=== PATIENT | female | born 1990 | race Caucasian/White ===

== ENCOUNTER 2020-02-07 10:31 | Emergency (ER) | payer OTHER ==
[2020-02-07 11:20] LABS: #Eosinphils 0.1 thou/uL (0.0-0.7); #Lymphocytes 1.4 thou/uL (1.20-3.40); #Monocytes 0.5 thou/uL (0.11-0.59); #Neutrophils 6.3 thou/uL (1.40-6.50); %Basophils 0.6 % (0.0-1.0); %Eosinophils 1.4 % (0.0-10.0); %Lymphocytes 17.1 % (21.0-51.0); %Monocytes 5.4 % (0.0-10.0); %Neutrophils 75.5 % (42.0-75.0); Hemoglobin 11.9 g/dL (12.0-16.0); Mean Corpuscular HGB CONC 35.2 g/dL (32.0-36.0); Mean Corpuscular Hemoglobin 30.8 pg (27.0-31.0); Mean Corpuscular Volume 87.7 fL (78.0-98.0); Mean Platelet Volume 7.3 fL (7.4-10.4); Platelet Count 170 thou/uL (130-400); RBC Distribution Width 11.3 % (11.5-14.5); Red Blood Cell (RBC) Count 3.88 mill/uL (4.20-5.40); White Blood Cell (WBC) Count 8.4 thou/uL (4.8-10.8)
[2020-02-07 11:57] LABS: ALT (SGPT) 17 U/L (8-55); AST (SGOT) 15 U/L (5-34); Albumin 3.6 g/dL (3.5-5.0); Alkaline Phosphatase 47 U/L (40-110); Anion Gap 12 mmol/L (10-20); BUN (Urea Nitrogen) 8 mg/dL (7.0-18.7); Bilirubin, Total 0.3 mg/dL (0.2-1.2); Calc. Creatinine Clearance 0 mL/min (70-130); Calcium 8.7 mg/dL (7.8-10.44); Carbon Dioxide 22 mmol/L (22-29); Chloride 106 mmol/L (98-107); Estimated GFR-MDRD Greater than 90; Globulin 2.6 g/dL (2.4-3.5); Glucose 92 mg/dL (70-105); Lipase 21 U/L (8-78); Protein, Total 6.2 g/dL (6.0-8.3); Sodium 136 mmol/L (136-145)
[2020-02-07 13:56] LABS: Bilirubin Negative (Negative); Blood, Urine Negative (Negative); Clarity Clear (Clear); Glucose, Urine (Dipstick) Normal (Negative); Leukocyte Negative Leu/uL (Negative); Nitrite Negative (Negative); Protein, Urine (Dipstick) Negative (Neg-Trace); Urobilinogen Normal mg/dL (Less than 2)
--- NOTE | 2020-02-07 14:43 | ULT ---
LIMITED OB ULTRASOUND: Date: 02-07-2020 Comparison: None History: female with cramping. Technique: Multiplanar grayscale sonographic imaging of the gravid uterus is obtained. FINDINGS: Cervical length is approximately 3.2 cm. Single intrauterine gestation demonstrates a vertex presenta tion. The placenta is located anteriorly with no evidence for a placental previa or abruption. heart rate is 157 beats/minute. anatomy is not assessed on this exam. Amniotic fluid volume appears qualitatively normal. biometry: BPD 3.8 cm 17 weeks 4 days HC 13.0 cm 16 weeks 5 days AC 10.9 cm 16 weeks 5 days FL 2.1 cm 16 weeks 2 days Average age based on ultrasound is 16 weeks 4 days, with estimated date of delivery on 07-20-2020. Estimated weight is 162 grams (+/- 24 grams). IMPRESSION: Single intrauterine gestation as detailed above. POS: ELPIDIO
== END 2020-02-07 13:58 | disposition home or self-care (01) ==
LOC: ERS 10:31
DX: O99.89 Other specified diseases and conditions complicating pregnancy, childbirth and the puerperium (principal); R06.02 Shortness of breath; R07.9 Chest pain, unspecified; Z3A.16 16 weeks gestation of pregnancy
CPT/HCPCS: 36415; 76815; 80053; 81003; 83690; 84702; 85025

== ENCOUNTER 2020-03-25 04:25 | Observation (INO) | payer OTHER ==
[2020-03-25 05:09] VITALS: BMI 31.5
[2020-03-25] MEDS ORDERED: hydrALAZINE 20 MG/ML VIAL SLOW IVP PRN (05:31)
--- NOTE | 2020-03-25 05:40 | PDOC.FPROB ---
FMR OB H&P: HPI - History of Present Illness Chief Complaint: Epigastric pain Indentification: 30yo at 23.2wks History of Present Illness: 30yo at 23.2wks presents for epigastric pain that started suddenly at 0330 and woke her from sleep. She has had this pain 3 times prior but this the longest it has lasted. She presented to the ED last time she had the pain but it had resolved prior to getting to ED. She ate around 1200 which she usually does not do. She at a chicken gurinder and mashed potatoes. The last 3 times she has eaten [place] food right before. She was concerned it may be heartburn so she took Mylanta prior to coming in and had no relief. She has vomited each time this has happened. Usually gives her some relief but this time it did not. Endorses FM. Denies vaginal bleeding/discharge, LOF, contractions. Primary Care Physician: CJ Amin FMR OB H&P: Current - Care : 2 Para: 0 Gestational age: 23.2 Course/Complications: gHTN vs cHTN? FMR OB H&P: History - Past Medical History PMH: Denies - Surgical History Sx History: Denies - Social History Social History: Denies alcohol, drug, tobacco use - Family History Family History: Noncontributory FMR OB H&P: Medications - Current Home Medications: Medication Instructions Recorded Confirmed Type Vitamin 1 tablet PO DAILY 03/25/20 03/25/20 History Sertraline HCl 50 mg PO DAILY 03/25/20 03/25/20 History Allergies/Adverse Reactions: Allergies Allergy/AdvReac Type Severity Reaction Status Date / Time blackberry Allergy Verified 03/25/20 05:04 FMR OB H&P: ROS - Review of Systems General: denies: fever/chills, weight/appetite/sleep changes Eyes: denies: vision changes ENT: denies: nasal congestion, rhinorrhea Cardiovascular: denies: chest pain, edema Respiratory: denies: cough, congestion, shortness of breath Gastrointestinal: reports: abdominal pain, vomiting. denies: nausea Genitourinary (Female): denies: dysuria, vaginal discharge, vaginal bleeding, contractions Musculoskeletal: denies: pain, swelling Neurologic: denies: numbness, weakness Integumentary: denies: itching, rash, lesions FMR OB H&P: Vital Signs - Maternal Vital signs: 147/87 - Heart Tones Baseline: 110 FMR OB H&P: Physical Exam - Physical Exam General: awake, alert and oriented, other (In distress) HEENT: normocephalic and atraumatic, MMM, conjunctiva clear, no scleral icterus , grossly normal hearing Neck: supple, trachea midline Heart: RRR, no murmurs/rubs/gallops, no edema General: CTAB, no respiratory distress Abdomen: soft, gravid, bowel sound present, other (epigastric and RUQ tenderness. No rebound or rigidity) Musculoskeletal: normal gait and station, FROM in all four extremities, no misalignment/asymmetry, no atrophy Neurological: no focal deficit Skin: no rash Lymphatic: no unusual bruising or bleeding Psychiatric: intact recent and remote memory, good judgement and insight, normal mood and affect FMR OB H&P: A/P Disposition: 30yo at 23.2wks Epigastric pain - Appendicitis very unlikely based on exam. No contractions on toco. Suspect cholelithiasis vs GERD - Ordered CBC, CMP, RUQ US. Will give GI cocktail. - FHTs reviewed Discussion: Date/Time: 03/25/20 0531 This H&P was discussed with Dr. Guerrero who agrees with the above documentation and plan. Addendum - Attending - Attending Attestation Date/Time: 03/25/20 1046 I personally evaluated the patient and discussed the management with Dr. Amos I agree with the History, Examination, Assessment and Plan documented above with any addition or exceptions noted below - 30 yo @23.2 weeks presented c/o b/l upper abdominal pain under her ribs; mostly midline. Pain began few hours after eating. Has had 3 other episodes of similar pain usually few hours eating but none that has persisted or been as severe. Did have one episode of N/V. Denies any fever or chills. (+) FM. GI cocktail given with minimal relief. Afebrile VSS. Exam repeated by me. Abd- mild epigastric tenderness, no rebound or guarding. Labs: WBC=9.4, H/H=11.9/34.1, Ahv=495, Na= 137, K=3.8, Qw=001, CO2=25, BUN/Cr=6/0.61, Anja=427, AST/ALT=95/61 A/P: 1) Upper abdominal pain- suspect gallbladder colic; will get RUQ USG for further evaluation.
[2020-03-25] MEDS ORDERED: Lidocaine 2% Viscous Solution 10 ML, Aluminum & Magnesium Hydroxide 30 ML SSW SCH (06:30)
[2020-03-25 06:58] LABS: #Monocytes 0.5 thou/uL (0.11-0.59); #Neutrophils 7.8 thou/uL (1.40-6.50); %Basophils 0.1 % (0.0-1.0); %Eosinophils 0.4 % (0.0-10.0); %Lymphocytes 10.9 % (21.0-51.0); %Monocytes 5.8 % (0.0-10.0); %Neutrophils 82.8 % (42.0-75.0); Hemoglobin 11.9 g/dL (12.0-16.0); Mean Corpuscular HGB CONC 34.8 g/dL (32.0-36.0); Mean Corpuscular Hemoglobin 30.7 pg (27.0-31.0); Mean Corpuscular Volume 88.1 fL (78.0-98.0); Mean Platelet Volume 7.4 fL (7.4-10.4); Platelet Count 190 thou/uL (130-400); RBC Distribution Width 12.3 % (11.5-14.5); Red Blood Cell (RBC) Count 3.87 mill/uL (4.20-5.40); White Blood Cell (WBC) Count 9.4 thou/uL (4.8-10.8)
[2020-03-25 07:23] LABS: ALT (SGPT) 61 U/L (8-55); AST (SGOT) 95 U/L (5-34); Albumin 3.8 g/dL (3.5-5.0); Alkaline Phosphatase 71 U/L (40-110); Anion Gap 11 mmol/L (10-20); BUN (Urea Nitrogen) 6 mg/dL (7.0-18.7); Bilirubin, Total 0.6 mg/dL (0.2-1.2); Calc. Creatinine Clearance 169 mL/min (70-130); Carbon Dioxide 25 mmol/L (22-29); Chloride 105 mmol/L (98-107); Estimated GFR-MDRD Greater than 90; Globulin 2.8 g/dL (2.4-3.5); Glucose 101 mg/dL (70-105); Potassium 3.8 mmol/L (3.5-5.1); Protein, Total 6.6 g/dL (6.0-8.3); Sodium 137 mmol/L (136-145)
[2020-03-25] MEDS ORDERED: Acetaminophen 500 MG TAB PO SCH (09:30)
--- NOTE | 2020-03-25 09:44 | ULT ---
GALLBLADDER ULTRASOUND: HISTORY: Right upper quadrant pain. FINDINGS: Real-time imaging of the right upper quadrant shows some echogenic material within the gallbladder wi th some faint shadowing associated with this. This probably represents sludge with small stones. Th e common duct is 7 mm. Visualized liver parenchyma shows no focal findings. Pancreas is fairly well imaged and unremarkable. Right kidney is normal in size and not obstructed. IMPRESSION: Echogenic material within the gallbladder lumen which does appear to show some faint shadowing sugges ting some small stones with sludge. The common duct is slightly dilated. It measures in the 7 mm ra nge. POS: OFF
[2020-03-25] MEDS ORDERED: Butorphanol Tartrate 1 MG/ML VIAL SLOW IVP PRN (10:25)
[2020-03-25] MEDS ORDERED: Ondansetron ODT 4 MG TAB PO PRN (10:25)
[2020-03-25] MEDS ORDERED: Ondansetron PF 4 MG/2 ML Vial IVP PRN (10:25)
[2020-03-25] MEDS ORDERED: Acetaminophen 325 MG TAB PO PRN (10:25)
--- NOTE | 2020-03-25 10:48 | PDOC.BPN ---
- Brief Progress Note RUQ ultrasounds revealed shadowing indicating stones and 7mm dilated common duct. Dr. Poole for surgery was consulted and will see her later today. Patient continues to have severe epigastric pain and was given PO tylenol. Patient has been admitted to surgical floor and is receiving zofran for nausea and stadol for pain.
[2020-03-25] MEDS: Lactated Ringer's 1,000 ML IV SCH ×2 (13:46→21:19)
[2020-03-25 14:47] LABS: INR-International Normal Ratio 0.9; Prothrombin Time 12.2 sec (12.0-14.7)
--- NOTE | 2020-03-25 19:28 | PDOC.CONS ---
- Consultation CHIEF COMPLAINT: Abdominal pain HISTORY OF PRESENT ILLNESS: 30-year-old gravid female (23 weeks) with 1 day history of abdominal pain. The pain is characterized as "sharp and stabbing" it is located in the epigastrium. She reports that it radiates along the bilateral subcostal margins into the back. It is associated with nausea and vomiting. She reports 3 previous episodes of similar pain (all associated with fatty meals); however, these have resolved spontaneously within a short period of time. The duration of this pain was worrisome, and she presented for further evaluation. REVIEW OF SYSTEMS: General: Denies recent weight changes, fever, or chills. Eyes: Denies visual changes, pain, or irritation ENT: Denies changes in hearing, nasal discharge, or sore throat Cardiovascular: Denies chest pain, palpitations, shortness of breath, or edema. Respiratory: Denies cough, shortness of breath, or wheezing Gastrointestinal: Positive per HPI Genitourinary: Denies frequent urination or dysuria Musculoskeletal: Denies pain or restricted motion Integumentary: Denies abnormal rashes, sores, or skin lesions Neurological: Denies numbness, tingling, or weakness. Psychiatric: Denies new onset anxiety or depression Endocrine: Denies temperature intolerances, polyuria, or excessive thirst Hematologic: Denies abnormal bruising or bleeding PAST MEDICAL HISTORY: Denies PAST SURGICAL HISTORY: Denies FAMILY HISTORY: Noncontributory SOCIAL HISTORY None smoker, denies illicit drug use, endorses occasional alcohol consumption. PHYSICAL EXAM: Vital Signs: wnl General: Alert and oriented, no acute distress ENT: Sclera anicteric, pupils equal and reactive, mucous membranes moist Neck: No jugular venous distention, trachea midline Cardiovascular: Regular rate and rhythm Pulmonary: Clear to auscultation Abdominal: Soft, nondistended, mildly tender to palpation. Gravid Genitourinary: Normal anatomy Rectal: Deferred Integument: No abnormal rashes or lesions Musculoskeletal: No gross deformities or edema, normal range of motion LABORATORY: Laboratory analysis reviewed and demonstrates a normal white blood cell count. Mildly elevated transaminases at 95 and 61. IMAGING: The ultrasound of the abdomen was reviewed as well as radiology interpretation. Demonstrates sludge and small stones with a mildly but dilated common bile duct of 7 mm. ASSESSMENT: 30-year-old female with biliary colic versus early acute cholecystitis; possibly due to the passage of a small stone. The natural history of biliary colic and acute cholecystitis was discussed in detail with the patient to include her management options relative to her . PLAN: We will monitor overnight. If the patient continues to improve, her and her feel that they are likely to pursue nonsurgical therapy and focus on diet modifications. If she fails to to continue her improvement, we will plan for laparoscopic cholecystectomy with intraoperative cholangiogram tomorrow morning. The relative risks and benefits of this procedure were discussed in detail with the patient, specifically addressing the risk of bleeding, infection , damage to adjacent structures, bile leak, and damage to the common bile duct. Informed consent was obtained.
[2020-03-25] MEDS ORDERED: Prenatal Vitamin 1 TAB PO SCH (21:00)
[2020-03-26] MEDS: Lactated Ringer's 1,000 ML IV SCH (05:45)
[2020-03-26 07:29] LABS: #Eosinphils 0.1 thou/uL (0.0-0.7); #Lymphocytes 1.7 thou/uL (1.20-3.40); #Monocytes 0.5 thou/uL (0.11-0.59); #Neutrophils 4.8 thou/uL (1.40-6.50); %Basophils 0.1 % (0.0-1.0); %Eosinophils 1.3 % (0.0-10.0); %Lymphocytes 23.9 % (21.0-51.0); %Monocytes 6.5 % (0.0-10.0); %Neutrophils 68.2 % (42.0-75.0); Hemoglobin 11.8 g/dL (12.0-16.0); Mean Corpuscular HGB CONC 34.3 g/dL (32.0-36.0); Mean Corpuscular Hemoglobin 30.9 pg (27.0-31.0); Mean Corpuscular Volume 90.1 fL (78.0-98.0); Mean Platelet Volume 7.5 fL (7.4-10.4); Platelet Count 182 thou/uL (130-400); RBC Distribution Width 12.4 % (11.5-14.5); Red Blood Cell (RBC) Count 3.82 mill/uL (4.20-5.40); White Blood Cell (WBC) Count 7.1 thou/uL (4.8-10.8)
--- NOTE | 2020-03-26 07:43 | PDOC.FM ---
- Subjective Subjective: No acute overnight events. No new complaints. States her pain has been resolved since she received stadol around 1000 yesterday morning. Has been able to tolerate PO intake since then without any n/v or epigastric/RUQ pain. Would like to defer surgical intervention. Has many questions about appropriate diet. - Objective Vital Signs & Weight: Vital Signs (12 hours) Temp Pulse Resp BP Pulse Ox 03/26/20 04:42 98.3 F 99 16 115/59 L 100 03/25/20 23:27 98.1 F 100 16 138/70 100 Weight Weight 80.739 kg I&O: 03/25/20 03/26/20 03/27/20 06:59 06:59 06:59 Intake Total 2448 Balance 2448 Result Diagrams: 03/26/20 07:22 03/26/20 07:22 Phys Exam - Physical Examination Constitutional: NAD HEENT: moist MMs, sclera anicteric Neck: supple, full ROM Respiratory: no wheezing, no rales, no rhonchi, clear to auscultation bilateral Cardiovascular: RRR, no significant murmur Gastrointestinal: soft, non-tender, positive bowel sounds gravid Musculoskeletal: no edema, pulses present Neurological: non-focal, moves all 4 limbs Psychiatric: normal affect, A&O x 3 Skin: no rash Dx/Plan - Plan Plan: Biliary colic vs acute cholecystitis RUQ US revealed shadowing in GB indicative of stones, and 7mm dilated CBD on . -Surgery consulted, appreciate recs -Symptomatically improved -Discussed low-fat diet for cholecystitis at length -Likely discharge home today pending approval from surgery sIUP: - @ 23.2 wks -Confirm FHT qShift -Tylenol, Stadol only for pain control Addendum - Attending - Attending Attestation Date/Time: 03/26/20 0906 I personally evaluated the patient and discussed the management with Dr. Pineda I agree with the History, Examination, Assessment and Plan documented above with any addition or exceptions noted below - Patient denies any complaints. No further abdominal pain since yesterday. Tolerated diet last night. Afebrile VSS. A/P: 10 IUP@ 23.3 weeks with biliary colic- no further pain. Appreciate surgery recommendations. Will plan to d/c home today.
[2020-03-26 07:50] LABS: ALT (SGPT) 104 U/L (8-55); AST (SGOT) 56 U/L (5-34); Albumin 3.6 g/dL (3.5-5.0); Alkaline Phosphatase 76 U/L (40-110); Anion Gap 10 mmol/L (10-20); BUN (Urea Nitrogen) 7 mg/dL (7.0-18.7); Bilirubin, Total 0.4 mg/dL (0.2-1.2); Calc. Creatinine Clearance 174 mL/min (70-130); Calcium 8.8 mg/dL (7.8-10.44); Carbon Dioxide 24 mmol/L (22-29); Chloride 107 mmol/L (98-107); Estimated GFR-MDRD Greater than 90; Globulin 2.5 g/dL (2.4-3.5); Glucose 84 mg/dL (70-105); Potassium 3.8 mmol/L (3.5-5.1); Protein, Total 6.1 g/dL (6.0-8.3); Sodium 137 mmol/L (136-145)
[2020-03-26 09:38] VITALS: BP 113/55; TEMP 98.5
[2020-03-26 12:19] LABS: SARS-CoV-2 MS2 Positive; SARS-CoV-2 N Gene Negative; SARS-CoV-2 S Gene Negative; SARS-CoV-2 by NAA Not Detected (NotDetected); SARS-CoV-2 orf1ab Negative
--- NOTE | 2020-03-26 18:15 | DIS ---
DATE OF ADMISSION: 03/25/2020 DATE OF DISCHARGE: 03/26/2020 RESIDENT: Siobhan Pineda DO ADMITTING ATTENDING: Melinda Guerrero MD DISCHARGE ATTENDING: Melinda Guerrero MD CONSULTS: General Surgery, Dr. Poole. PROCEDURES: Right upper quadrant ultrasound. Echogenic material within the gallbladder lumen which does appear to show some faint shadowing suggesting some small stones with sludge. The common duct is slightly dilated measuring 7 mm. PRIMARY DIAGNOSIS: Biliary colic with cholelithiasis. SECONDARY DIAGNOSIS: Single intrauterine . DISCHARGE MEDICATIONS: 1. Sertraline 50 mg daily. 2. vitamin one tablet daily. 3. Tylenol 650 mg q.4 hours p.r.n. DISCONTINUED MEDICATIONS: None. HOSPITAL COURSE: This 30-year-old female, who is a G2, P0 at 23 and 2 weeks gestation, was admitted for a complaint of epigastric pain with associated vomiting. She has had similar pain in the past associated with eating [place] food. Upon lab evaluation, her AST and ALT were both mildly elevated. heart tones were detected with a baseline heart rate of approximately 110. A right upper quadrant ultrasound was performed, revealing stones and sludge in the gallbladder, along with dilation of the common bile duct to 7 mm. General Surgery was consulted, Dr. Poole. Surgery recommended watching overnight and overnight her pain resolved. She opted not to pursue surgical management of her biliary colic at this time and will try low-fat diet instead. DISPOSITION: Stable. DISCHARGE INSTRUCTIONS: Location: Home. Diet: Low fat. Activity: As tolerated. Followup: Follow up with her PCP at [facility] as previously scheduled within one week. Job ID: [id number] [facility]
--- NOTE | 2020-03-26 21:14 | PDOC.BPN ---
- Brief Progress Note Doing much better. Denies abdominal pain. Tolerating regular diet, without nausea or vomiting. EXAM: VS: T 98.3 HR 99 BP 115/59 RR 16 SpO2 [ ] General: Alert and oriented, no acute distress, resting comfortably Pulmonary: No dyspnea or difficulty breathing Abdomen: Soft, non-distended, nontender CV: Regular rate and rhythm, palpable distal pulses Extremities: No edema I/O: NR oral intake NR UOP LABORATORY / IMAGING: Laboratory analysis reviewed and demonstrates a normal white blood cell count of 7.1. Basic metabolic panel within normal limits PLAN: 30-year-old gravid female with biliary colic. After lengthy discussion with the patient over the last 48 hours, they have elected to proceed with nonoperative management and dietary changes. Contact information provided for clinic for outpatient management of biliary colic continues. Okay to discharge home
== END 2020-03-26 11:25 | disposition home health service (06) ==
LOC: ER/OP 04:25 → L&D/OP 04:25 → 3SW 12:54
PROVIDERS: ADMIT Family Medicine; ATTEND Family Medicine
DX: O99.613 Diseases of the digestive system complicating pregnancy, third trimester (principal); K80.70 Calculus of gallbladder and bile duct without cholecystitis without obstruction; Z3A.23 23 weeks gestation of pregnancy; Z79.899 Other long term (current) drug therapy; Z91.018 Allergy to other foods
CPT/HCPCS: 36415; 76705; 80053; 85025; 85610; 87635; 96361; 96374; 96375; G0378; J0595; J2405; U0003

== ENCOUNTER 2020-05-15 13:08 | Outpatient (CLI) | payer OTHER | END 2020-05-15 13:09 | disposition home or self-care (01) | LOC: DTY/OP 13:08 | PROVIDERS: ATTEND Family Medicine | DX: K80.50 Calculus of bile duct without cholangitis or cholecystitis without obstruction (principal) | CPT/HCPCS: 97802 ==

== ENCOUNTER 2020-05-16 18:43 | Day surgery (SDC) | payer OTHER ==
[2020-05-16 19:26] VITALS: BP 132/80; TEMP 98.3; BMI 31.6
[2020-05-16] MEDS ORDERED: hydrALAZINE 20 MG/ML VIAL SLOW IVP PRN (20:14)
[2020-05-16 20:35] LABS: Bacteria/HPF None Seen HPF (None Seen); Bilirubin Negative (Negative); Blood, Urine Negative (Negative); Clarity Clear (Clear); Glucose, Urine (Dipstick) Normal (Negative); Ketone, Urine Negative (Negative); Leukocyte Negative Leu/uL (Negative); Nitrite Negative (Negative); Protein, Urine (Dipstick) Negative (Neg-Trace); RBC/HPF 0-3 HPF (0-3); Specific Gravity, Urine 1.004 (1.002-1.036); Squamous Epithelial 0-3 HPF (0-3); Urobilinogen Normal mg/dL (Less than 2); WBC/HPF 0-3 HPF (0-3); pH, Urine 6.5 (5.0-9.0)
--- NOTE | 2020-05-16 21:24 | PDOC.FPROB ---
FMR OB H&P: HPI - History of Present Illness Chief Complaint: lost mucus plug History of Present Illness: 30 y/o at 30.6 wks presents with concern she lost her mucus plug earlier today. States she noticed some pink-tinged mucus on the toilet tissue when she wiped after urination. She called a nurse through her insurance who advised her to come to triage for concern she may have lost her mucous plug. Endorses good movement, denies any LOF, vaginal bleeding, vaginal discharge other than that described. Describes some lower abdominal cramping, no true contractions. Denies any dysuria, hematuria. Last sexual activity 3 days ago. 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, tachycardia s/p cardiac workup age 16 - OB History OB History: hx SAB - Surgical History Sx History: cholecystectomy - Social History Social History: denies tobacco, etoh, drug use - Family History Family History: Cancer, Drug use, Heart dz, ESRD, HTN, Alzhimers FMR OB H&P: Medications - Current Home Medications: Medication Instructions Recorded Confirmed Type Vitamin 1 tablet PO DAILY 03/25/20 05/16/20 History Sertraline HCl 50 mg PO DAILY 03/25/20 05/16/20 History Sennosides [Senna] 3 tab PO DAILY 04/19/20 05/16/20 History Allergies/Adverse Reactions: Allergies Allergy/AdvReac Type Severity Reaction Status Date / Time blackberry Allergy Intermediate Verified 05/16/20 19:15 FMR OB H&P: ROS - Review of Systems General: denies: fever/chills Eyes: denies: vision changes, floaters ENT: denies: nasal congestion, rhinorrhea Cardiovascular: denies: chest pain, palpitation, edema Respiratory: denies: cough, congestion, shortness of breath Gastrointestinal: reports: cramping. denies: abdominal pain, nausea, vomiting, diarrhea, constipation Genitourinary (Female): reports: vaginal discharge, vaginal pain. denies: dysuria, hematuria, polyuria, vaginal bleeding, vaginal pressure Musculoskeletal: denies: pain Neurologic: denies: weakness Integumentary: denies: rash Endocrine: denies: polyuria FMR OB H&P: Vital Signs - Maternal Vital signs: Vital Signs - First Documented Temp Pulse Resp BP Pulse Ox 98.3 F 106 H 18 132/80 99 05/16/20 19:13 05/16/20 19:13 05/16/20 19:13 05/16/20 19:13 05/16/20 19:13 - Heart Tones Baseline: 140 (reassuring) Variability: moderate Acceleration: present Deceleration: absent Goodwin contractions every: absent FMR OB H&P: Physical Exam - Physical Exam General: NAD, awake, alert and oriented HEENT: normocephalic and atraumatic, MMM, conjunctiva clear, grossly normal vision, grossly normal hearing Neck: no LAD Heart: RRR, no murmurs/rubs/gallops, pulses present, no edema General: CTAB, no respiratory distress Abdomen: soft, gravid, non-tender, bowel sound present Musculoskeletal: normal gait and station, pulses present Neurological: sensation to pain,touch and proprioception grossly normal, no foca l deficit Skin: no rash Lymphatic: no unusual bruising or bleeding Psychiatric: intact recent and remote memory - Pelvic Exam SVE: closed/thick/high FMR OB H&P: Results - Labs Lab results: Laboratory Results - last 24 hr 05/16/20 20:20 Urine Color Colorless Urine Clarity Clear Urine pH 6.5 Ur Specific [place] 1.004 Urine Protein Negative Urine Glucose (UA) Normal Urine Ketones Negative Urine Blood Negative Urine Nitrite Negative Urine Bilirubin Negative Urine Urobilinogen Normal Ur Leukocyte Esterase Negative Urine RBC 0-3 Urine WBC 0-3 Ur Squamous Epith Cells 0-3 Urine Bacteria None Seen FMR OB H&P: A/P Disposition: sIUP, uterine irritability at 30.6 wks with lower abd cramping, uterine irritability - UA negative for infection - speculum exam: physiologic discharge, no pooling of fluid, no expulsion of fluid from cervical os with valsalva, cervix visually appears closed - SVE: closed, thick, high - US with no evidence of placenta previa - very low suspicion for pre-term labor given cervical and speculum exam - discharge to home with return precautions - f/u in clinic at routinely scheduled Discussion: Date/Time: 05/16/202123 This H&P was discussed with Dr. Amaya and Dr. Camarena who agree with the above documentation and plan. Addendum - Attending - Attending Attestation Date/Time: 05/18/202045 I personally evaluated the patient and discussed the management with Dr. Pineda. I agree with the History, Examination, Assessment and Plan documented above with any addition or exceptions noted below. Reassuring status, minimal/no ctx, c/th/h. D/c with return precautions discussed.
--- NOTE | 2020-05-16 22:23 | ULT ---
Limited obstetrical ultrasound: 05/16/2020 COMPARISON: None HISTORY: Evaluate for placental previa TECHNIQUE: Multiplanar grayscale sonographic imaging of the gravid uterus obtained. FINDINGS: There is a single intrauterine gestation demonstrating a vertex presentation. The placenta is located anteriorly, demonstrating no evidence for previa or abruption. heart rate is 114 bpm. anatomy is not assessed on this exam. IMPRESSION: No evidence for placental previa.
== END 2020-05-16 21:50 | disposition home or self-care (01) ==
LOC: L&D/OP 18:43
PROVIDERS: ATTEND Emergency Medicine
DX: O99.89 Other specified diseases and conditions complicating pregnancy, childbirth and the puerperium (principal); N89.8 Other specified noninflammatory disorders of vagina; R10.9 Unspecified abdominal pain; Z79.899 Other long term (current) drug therapy; Z91.018 Allergy to other foods
CPT/HCPCS: 76815; 81003

== ENCOUNTER 2020-07-01 09:16 | Inpatient (IN) | payer OTHER ==
[2020-07-01 09:58] VITALS: BMI 34.9
[2020-07-01] MEDS ORDERED: hydrALAZINE 20 MG/ML VIAL SLOW IVP PRN (10:36)
--- NOTE | 2020-07-01 10:49 | PDOC.FPROB ---
FMR OB H&P: HPI - History of Present Illness Chief Complaint: elevated blood pressure History of Present Illness: 30 y/o at 37.3 weeks presents for evaluation after being found to have an elevated protein-creatinine ratio of 0.4 in the outpatient setting. She complains of swelling in her legs and hands. She reports symptoms of vision changes approximately 3 weeks ago described as flashing and floating, but has not had any flashes, floating, or changes to visual acuity since that time. She denies headache, SOB, chest pain, abdominal pain. She also denies any vaginal bleeding, LOF, vaginal discharge. She endorses good movement. Other complications in this include pre-HTN vs white coat HTN. She was evaluated by MFM during this regarding her blood pressure, which has been sporadically elevated. She has hx of HSV, compliant with valtrex, denies any active lesions or prodromal symptoms. She reports a bump on her L labia without prodromal sx that she does not think is an HSV outbreak. She was seen in office on 06/27 and GBS swab collected, results still pending. Primary Care Physician: CJ Benoit/Kiran FMR OB H&P: Current - Care : 2 Para: 0 Gestational age: 37.3 wks Due date: 07/19/20 Dating Criteria: 11.2 wk sono Course/Complications: mood disorder, biliary colic s/p cholecystectomy, pre-HTN vs white coat HTN seen by MFM - OB Labs Blood type: O RH: negative Antibody Screen: positive (Ab positive on admission s/p rhogam, was ab neg in 03/2020) HIV: negative RPR: negative HepBsAg: negative Rubella: immune Gonorrhea: negative Chlamydia: negative Pap Smear: ASCUS - colpo without bx, will need repeat w/ECC 6 wk pp 1 hour gtt: 2 hr 76/139/84 GBS: unknown (collected 06/27, results pending) FMR OB H&P: History - Past Medical History PMH: anxiety, depression, HSV w/o outbreak, tachycardia s/p cardiac workup age 16, pre-HTN vs white coat HTN - OB History OB History: hx SAB - INSURANCE CONSULTANT History INSURANCE CONSULTANT History: Pap ASCUS 12/2019, colpo w/o bx, needs f/u 6 wk pp - Surgical History Sx History: cholecystectomy - Social History Social History: denies tobacco, etoh, drug use - Family History Family History: Cancer, Drug use, Heart dz, ESRD, HTN, Alzhimers FMR OB H&P: Medications - Current Home Medications: Medication Instructions Recorded Confirmed Type Vitamin 1 tablet PO DAILY 03/25/20 07/01/20 History Sertraline HCl 50 mg PO DAILY 03/25/20 07/01/20 History Sennosides [Senna] 3 tab PO DAILY 04/19/20 07/01/20 History Allergies/Adverse Reactions: Allergies Allergy/AdvReac Type Severity Reaction Status Date / Time blackberry Allergy Intermediate Verified 07/01/20 09:58 FMR OB H&P: ROS - Review of Systems General: denies: fever/chills, fatigue Eyes: reports: floaters. denies: vision changes ENT: denies: nasal congestion, rhinorrhea Cardiovascular: reports: edema. denies: chest pain, palpitation Respiratory: denies: cough, congestion, shortness of breath Gastrointestinal: denies: abdominal pain, cramping, nausea, vomiting, diarrhea, constipation Genitourinary (Female): denies: dysuria, hematuria, polyuria, hesitancy, vaginal discharge, vaginal pain, vaginal bleeding, contractions, vaginal pressure Musculoskeletal: denies: pain Neurologic: reports: numbness. denies: weakness Integumentary: denies: rash Psychological: reports: anxiety FMR OB H&P: Vital Signs - Maternal Vital signs: BP: 141/80 HR: 100 - Heart Tones Baseline: 150 Variability: moderate Acceleration: present Deceleration: absent Category: category 1 [place] contractions every: > 10 min FMR OB H&P: Physical Exam - Physical Exam General: NAD, awake, alert and oriented HEENT: normocephalic and atraumatic, PERRLA, MMM, conjunctiva clear, no scleral icterus, grossly normal vision, grossly normal hearing, good dention Neck: supple, no LAD Chest: non-tender to palpation Heart: RRR, normal S1/S2, no murmurs/rubs/gallops Deviation from normal: 2-3 + pitting edema bilateral LE, edematous hands, facial swelling General: CTAB, no respiratory distress, good air movement Abdomen: soft, gravid, non-tender Musculoskeletal: normal gait and station, FROM in all four extremities Neurological: sensation to pain,touch and proprioception grossly normal, no clonus, no tremor, no focal deficit Skin: no rash Lymphatic: no unusual bruising or bleeding Psychiatric: intact recent and remote memory, good judgement and insight Deviation from normal: anxious mood - Pelvic Exam Vulva: normal hair distribution Deviation from normal: cystic lesion c/w ingrowing hair L labia majora, no herpetic lesions Cervix: no lesions SVE: FT/50/-2/soft/mid FMR OB H&P: A/P Disposition: Alicia, mIOL 37.3 weeks today, sIUP. Admit for mIOL for pre-eclampsia. Cephalic presentation, confirmed with bedside sono. - SVE FT/50/-2 soft, mid, intact @ 1200, 50 mcg PO cytotec @ 1215 - FHT 150s, Cat 1 strip - Repeat SVE unchanged at 1600, vaginal cytotec placed - Recheck SVE in 4 hours - continuous monitoring Pre-eclampsia Pr-Cr 0.4 in outpatient setting earlier this week. Blood pressure 140s/80s since arrival to L&D with one reported SBP 150s this AM. Symptoms include leg swelling, hand swelling, facial swelling. No severe features. - Pr/Cr ratio 0.5 on admission - Plt, LFTs wnl - continue to monitor BP closely, treat > 160/110 GBS unknown Collected in office on 06/27/20 - will try to contact [facility] for results - may need abx ppx if unable to obtain results Hx HSV Has never had outbreak. Compliant with valtrex ppx. - external and speculum exam performed without evidence of lesion Discussion: Date/Time: 07/01/20 1049 This H&P was discussed with Dr. Amos and Dr. Camarena who agree with the above documentation and plan. Addendum - Attending - Attending Attestation Date/Time: 07/02/20 0903 I personally evaluated the patient and discussed the management with the team. I agree with the History, Examination, Assessment and Plan documented above with any addition or exceptions noted below. Extensive discussion with the patient concerning her blood pressures. She is adamant she does not have chronic hypertension, that she checked her bp's at home and never had elevated ones until recently, when they started increasing to the 130's/80's and on morning of admission were >140/90. She has no severe symptoms. On exam she has no clonus but obvious facial and hand swelling. He labs are diagnostic of preeclampsia with her p/c > 0.3. Her platelet count, while not low, is <150k. Will plan for induction. On speculum exam no lesions c/w HSV. No prodromal symptoms as well. Plan for PO cytotec 2/ patient's aversion to SVE.
[2020-07-01] MEDS ORDERED: Ondansetron PF 4 MG/2 ML Vial IVP PRN (11:01)
[2020-07-01] MEDS ORDERED: Promethazine HCl 25 MG/ML VIAL IM PRN (11:01)
[2020-07-01] MEDS ORDERED: Bupivacaine/Epinephrine 0.25% 30 ML VIAL ONE (11:39)
[2020-07-01] MEDS ORDERED: Bupivacaine 0.25% HCL 30 ML VIAL ONE (11:39)
[2020-07-01] MEDS ORDERED: NS / Oxytocin 40 units/1000ml 1,000 ML IV PRN (11:44)
[2020-07-01] MEDS ORDERED: Lidocaine 1% (PF) 30 ML VIAL SC PRN (11:44)
[2020-07-01] MEDS ORDERED: Misoprostol 100 MCG TAB PO SCH (11:45)
[2020-07-01 11:55] LABS: #Eosinphils 0.1 thou/uL (0.0-0.7); #Monocytes 0.4 thou/uL (0.11-0.59); #Neutrophils 4.7 thou/uL (1.40-6.50); %Basophils 0.3 % (0.0-1.0); %Eosinophils 1.1 % (0.0-10.0); %Lymphocytes 15.3 % (21.0-51.0); %Monocytes 6.6 % (0.0-10.0); %Neutrophils 76.7 % (42.0-75.0); Hemoglobin 16.3 g/dL (12.0-16.0); Mean Corpuscular HGB CONC 35.4 g/dL (32.0-36.0); Mean Corpuscular Hemoglobin 31.3 pg (27.0-31.0); Mean Corpuscular Volume 88.4 fL (78.0-98.0); Mean Platelet Volume 7.7 fL (7.4-10.4); Platelet Count 135 thou/uL (130-400); Red Blood Cell (RBC) Count 5.21 mill/uL (4.20-5.40); White Blood Cell (WBC) Count 6.2 thou/uL (4.8-10.8)
[2020-07-01 12:14] LABS: ALT (SGPT) 14 U/L (8-55); AST (SGOT) 11 U/L (5-34); Albumin 3.5 g/dL (3.5-5.0); Alkaline Phosphatase 169 U/L (40-110); Anion Gap 14 mmol/L (10-20); BUN (Urea Nitrogen) 10 mg/dL (7.0-18.7); Bilirubin, Total 0.3 mg/dL (0.2-1.2); Calc. Creatinine Clearance 190 mL/min (70-130); Calcium 9.8 mg/dL (7.8-10.44); Carbon Dioxide 21 mmol/L (22-29); Chloride 106 mmol/L (98-107); Estimated GFR-MDRD Greater than 90; Globulin 3.2 g/dL (2.4-3.5); Glucose 101 mg/dL (70-105); Potassium 4.1 mmol/L (3.5-5.1); Protein, Total 6.7 g/dL (6.0-8.3); Sodium 137 mmol/L (136-145)
[2020-07-01 12:31] LABS: HBSAg Index 0.19 S/CO (0-0.99); Hep B Surf Ag Non-Reactive S/CO (NonReactive)
[2020-07-01 13:46] LABS: Syphilis Antibody Nonreactive (Nonreactive); Syphilis Antibody Index 0.03 S/CO (<1.00 Non-Reactive)
[2020-07-01 15:37] LABS: Creatinine, Urine 31.99 mg/dL (47-110)
[2020-07-01] MEDS ORDERED: Misoprostol 100 MCG TAB VAG SCH (16:30)
--- NOTE | 2020-07-01 21:08 | PDOC.LDPN ---
Labor & Delivery Progress Note - Subjective Subjective: painful contractions - Objective Vital signs reviewed and normal: yes General: NAD, breathing through contractions Uterine fundus: non tender Dilation: 1 Effacement: 75% Station: -2 FHT: category 1, variability present [place] contractions every: 2-3 min Plan: continue plan of care -: sIKARLOS, mIOL 37.3 weeks today, sIUP. Admit for mIOL for pre-eclampsia. Cephalic presentation, confirmed with bedside sono. @1200 FT/50/-2 soft, mid, intact, 50 mcg PO cytotec @ 1215 @1600 FT/50/-2, 25 cytotec PV @5 65/-2, baseline FHTs 120-130, salomon q2-3min, Cat I strip, blood pressures 130-140s systolic - recheck in 2 hours to determine if contractions have spaced, if yes, will give another cytotec - if contractions do not space out will check at 4 hours from last check - continuous monitoring - patient does not wish for anything for pain at this time Pre-eclampsia Pr-Cr 0.4 in outpatient setting earlier this week. Blood pressure 140s/80s since arrival to L&D with one reported SBP 150s this AM. Symptoms include leg swelling, hand swelling, facial swelling. No severe features. - Pr/Cr ratio 0.5 on admission - Plt, LFTs wnl - continue to monitor BP closely, treat > 160/110 GBS unknown Collected in office on 06/27/20 - called CPL and results still pending - will start ppx once patient is in active labor Hx HSV Has never had outbreak. Compliant with valtrex ppx. - external and speculum exam performed without evidence of lesion This case was discussed with Dr. Camarena. Addendum - Attending - Attending Attestation Date/Time: 07/02/20 0902 I personally evaluated and discussed the management with the team. I agree with the History, Examination, Assessment and Plan documented above with any addition or exceptions noted below.
[2020-07-01] MEDS ORDERED: Penicillin G Potassium 5 MILL.UNITS in Sodium Chloride 0.9% 100 ML IVPB SCH (22:15)
[2020-07-01] MEDS ORDERED: Butorphanol Tartrate 1 MG/ML VIAL SLOW IVP SCH (22:15)
[2020-07-02] MEDS ORDERED: Butorphanol Tartrate 1 MG/ML VIAL ONE (00:24)
--- NOTE | 2020-07-02 00:27 | PDOC.LDPN ---
Labor & Delivery Progress Note - Subjective Subjective: painful contractions - Objective Vital signs reviewed and normal: yes General: NAD, breathing through contractions Uterine fundus: non tender Dilation: 2 Effacement: 75% Station: -1 Plan: continue plan of care -: Bebe VargasOL 37.3 weeks today, sIUP. Admit for mIOL for pre-eclampsia. Cephalic presentation, confirmed with bedside sono. @1200 FT/50/-2 soft, mid, intact, 50 mcg PO cytotec @ 1215 @1600 FT/50/-2, 25 cytotec PV @5 165/-2, baseline FHTs 120-130, salomon q2-3min, Cat I strip, blood pressures 130-140s systolic @0030 , baseline FHTs 120bpm, salomon q1-2 min, Cat I strip, blood pressures 130s-140s systolic - given stadol x2 for pain, second dose given before 0030 check; patient would now like epidural - will recheck in 3-4 hours - continuous monitoring Pre-eclampsia Pr-Cr 0.4 in outpatient setting earlier this week. Blood pressure 140s/80s since arrival to L&D with one reported SBP 150s this AM. Symptoms include leg swelling, hand swelling, facial swelling. No severe features. - Pr/Cr ratio 0.5 on admission - Plt, LFTs wnl - continue to monitor BP closely, treat > 160/110 GBS unknown Collected in office on 06/27/20 - called CPL and results still pending - will start ppx once patient is in active labor Hx HSV Has never had outbreak. Compliant with valtrex ppx. - external and speculum exam performed without evidence of lesion This case was discussed with Dr. Camarena. Addendum - Attending - Attending Attestation Date/Time: 07/02/20 0906 I personally evaluated and discussed the management with the team. I agree with the History, Examination, Assessment and Plan documented above with any addition or exceptions noted below.
[2020-07-02] MEDS ORDERED: Butorphanol Tartrate 1 MG/ML VIAL SLOW IVP SCH (00:30)
[2020-07-02] MEDS ORDERED: Fentanyl 4 mcg/Bup 0.1% Cadd 100 ML ONE ×3 (01:02→20:56)
[2020-07-02] MEDS ORDERED: Acetaminophen 325 MG TAB PO PRN (01:06)
[2020-07-02] MEDS ORDERED: Ondansetron PF 4 MG/2 ML Vial IVP PRN (01:06)
[2020-07-02] MEDS ORDERED: Promethazine HCl 25 MG/ML VIAL IM PRN (01:06)
[2020-07-02] MEDS ORDERED: Naloxone HCl 0.4 mg/ml Vial IVP PRN ×2 (01:06)
[2020-07-02] MEDS ORDERED: diphenhydrAMINE 50 MG/ML VIAL IVP PRN (01:06)
[2020-07-02] MEDS ORDERED: Lactated Ringer's 500 ML IV PRN (01:06)
[2020-07-02] MEDS ORDERED: EPHEDRINE 25 MG/5 ML SYRINGE SLOW IVP PRN (01:06)
[2020-07-02] MEDS ORDERED: Communication Order-Pharmacy FS SCH (01:15)
--- NOTE | 2020-07-02 04:19 | PDOC.BPN ---
- Brief Progress Note Went to the floor, notified by nurse that she checked last at 0130 and the patient received an epidural right before the check. Patient remained a /-1. Patient's blood pressures are in the 120s-130s systolic. FHTs cat I, baseline 120, contractions q2hrs. Will recheck at 0530.
--- NOTE | 2020-07-02 05:50 | PDOC.LDPN ---
Labor & Delivery Progress Note - Objective Vital signs reviewed and normal: yes General: NAD, resting Uterine fundus: non tender Dilation: 3 Effacement: 75% Station: -1 FHT: category 1, variability present [place] contractions every: 2-3 min Plan: continue plan of care -: sIUP, mIOL 37.3 weeks today, sIUP. Admit for mIOL for pre-eclampsia. Cephalic presentation, confirmed with bedside sono. @1200 FT/50/-2 soft, mid, intact, 50 mcg PO cytotec @ 1215 @1600 FT/50/-2, 25 cytotec PV @20242 @0030 @0130 , epidural given @05 FHTs: cat I strip, baseline 120bpm, salomon q2-3 min - will recheck in 4 hours - continue monitoring Pre-eclampsia Pr-Cr 0.4 in outpatient setting earlier this week. Blood pressure 140s/80s since arrival to L&D with one reported SBP 150s this AM. Symptoms include leg swelling, hand swelling, facial swelling. No severe features. - Pr/Cr ratio 0.5 on admission - Plt, LFTs wnl - continue to monitor BP closely, treat > 160/110 GBS unknown Collected in office on 06/27/20 - called CPL and results still pending - will start ppx once patient is in active labor Hx HSV Has never had outbreak. Compliant with valtrex ppx. - external and speculum exam performed without evidence of lesion This case was discussed with Dr. Camarena. Addendum - Attending - Attending Attestation Date/Time: 07/02/20 0907 I personally evaluated and discussed the management with the team. I agree with the History, Examination, Assessment and Plan documented above with any addition or exceptions noted below. Recheck in 2-4 hours. If contractions space out plan for pitocin. If well applied AROM with internals at next check.
[2020-07-02] MEDS ORDERED: NS w/ Oxytocin 10 units 500 ML ONE ×2 (07:26→19:04)
[2020-07-02] MEDS: Fentanyl 4 mcg/Bupivacaine 0.1% Cassette 100 ML EPIDURAL SCH ×3 (08:42→20:58)
--- NOTE | 2020-07-02 08:59 | PDOC.OBLPN ---
FMR OB Labor PN: Subj - Interval History Hospital Day: 2 Chief Complaint: none Indentification: @ 37.4 WGA here for mIOL for pre-eclampsia Interval History: Pitocin started & epidural in place FMR OB Labor PN: Obj - Maternal Vital signs: BP: 132/72 HR: 112 - Procedures AROM: clear fluid IUPC placed: yes FSE placed: yes Resuscitative measures: maternal position change FMR OB Labor PN: Exam - Physical Exam General: NAD, awake, alert and oriented HEENT: normocephalic and atraumatic, grossly normal vision, grossly normal hearing General: no respiratory distress Abdomen: gravid Neurological: cranial nerves II through XII intact, sensation to pain,touch and proprioception grossly normal, no focal deficit Psychiatric: intact recent and remote memory, good judgement and insight, normal mood and affect - Pelvic Exam Vulva: normal hair distribution, appropriate umair stage SVE: /-2 Membranes: ruptured Presentation: cephalic FMR OB Labor PN: Data - Labs Lab results: Laboratory Results - last 24 hr 07/01/20 07/01/20 07/01/20 11:42 11:42 11:42 WBC 6.2 RBC 5.21 Hgb 16.3 H Hct 46.1 MCV 88.4 MCH 31.3 H MCHC 35.4 RDW 13.0 Plt Count 135 MPV 7.7 Neutrophils % 76.7 H Lymphocytes % 15.3 L Monocytes % 6.6 Eosinophils % 1.1 Basophils % 0.3 Neutrophils # 4.7 Lymphocytes # 1.0 L Monocytes # 0.4 Eosinophils # 0.1 Basophils # 0.0 Sodium 137 Potassium 4.1 Chloride 106 Carbon Dioxide 21 L Anion Gap 14 BUN 10 Creatinine 0.60 Estimated GFR (MDRD) Greater than 90 Glucose 101 Calcium 9.8 Total Bilirubin 0.3 AST 11 ALT 14 Alkaline Phosphatase 169 H Serum Total Protein 6.7 Albumin 3.5 Globulin 3.2 Albumin/Globulin Ratio 1.1 L U Random Total Protein Urine Creatinine Syphilis IgG/IgM Ab Hep Bs Antigen Non-Reactive Blood Type Antibody Screen Antibody Identification 07/01/20 07/01/20 07/01/20 11:42 11:42 14:50 WBC RBC Hgb Hct MCV MCH MCHC RDW Plt Count MPV Neutrophils % Lymphocytes % Monocytes % Eosinophils % Basophils % Neutrophils # Lymphocytes # Monocytes # Eosinophils # Basophils # Sodium Potassium Chloride Carbon Dioxide Anion Gap BUN Creatinine Estimated GFR (MDRD) Glucose Calcium Total Bilirubin AST ALT Alkaline Phosphatase Serum Total Protein Albumin Globulin Albumin/Globulin Ratio U Random Total Protein 16 H Urine Creatinine 31.99 L Syphilis IgG/IgM Ab Nonreactive Hep Bs Antigen Blood Type O NEGATIVE Antibody Screen POSITIVE H Antibody Identification ANTI-D DUE TO RHOGAM INJECTION FMR OB Labor PN: A/P - Problem List (1) Preeclampsia Current Visit: Yes Status: Acute Code(s): O14.90 - UNSPECIFIED PRE- ECLAMPSIA, UNSPECIFIED TRIMESTER Qualifiers: Trimester: third trimester Qualified Code(s): O14.93 - Unspecified pre- eclampsia, third trimester (2) Term Current Visit: Yes Status: Acute Code(s): Z34.90 - ENCNTR FOR SUPRVSN OF NORMAL , UNSP, UNSP TRIMESTER Disposition: 30YO @ 37.4 WGA here for a mIOL for pre-eclampsia sIUP, mIOL for pre-e @1200 FT/50/-2 soft, mid, intact, 50 mcg PO cytotec @ 1215 @1600 FT/50/-2, 25 cytotec PV @5 65/-2 @0030 /-1 @0130 /-1, epidural given @0530 /-1 @0900 /-2: cat 1 strip, baseline 120s, ctxs q2-3 minutes on pitocin @ 6, s/p AROM w/ IUPC & FSE now in place - will recheck in 3-4 hours Pre-eclampsia Pr-Cr 0.4 in outpatient setting earlier this week. Blood pressure 140s/80s since arrival to L&D with one reported SBP 150s yesterday. Symptoms include leg swelling, hand swelling, facial swelling. No severe features. BP WNLs so far t yosef. - Pr/Cr ratio 0.5 on admission - Plt & LFTs wnl - continue to monitor BPs closely & will treat if > 160/110 GBS unknown Collected in office on 06/27/20 - called CPL and results still pending - will start ppx once patient is in active labor Hx HSV Has never had outbreak. Compliant with valtrex ppx. - external and speculum exam performed without evidence of lesions on admission Dispo: Will continue routine labor management. Discussion: Date/Time: 07/02/2059 This H&P was discussed with Dr. Camarena who agrees with the above documentation and plan. Addendum - Attending - Attending Attestation Date/Time: 07/02/20907 I personally evaluated the patient and discussed the management with the team. I agree with the History, Examination, Assessment and Plan documented above with any addition or exceptions noted below. AROM for augmentation and placement of internals as difficulty with detecting ctx and FHTs consistently.
[2020-07-02] MEDS: Penicillin G 2.5 MILL.units 2.5 MILL.UNITS in Premix Bag 1 BAG IVPB SCH ×7 (09:57→23:00)
--- NOTE | 2020-07-02 12:18 | PDOC.LDPN ---
Labor & Delivery Progress Note - Subjective Subjective: comfortable - Objective Vital signs reviewed and normal: yes General: resting Uterine fundus: non tender SVE: /0 FHT: category 1, variability present [place] contractions every: 2-4min AROM: clear fluid IUPC placed: yes FSE placed: yes Plan: continue plan of care -: sIUP, mIOL 37.4 weeks today, sIUP. Admit for mIOL for pre-eclampsia. Cephalic presentation, confirmed with bedside sono. @1200 FT/50/-2 soft, mid, intact, 50 mcg PO cytotec @ 1215 @1600 FT/50/-2, 25 cytotec PV @2024-2 @0030 /-1 @0130 1, epidural given @051 FHTs: cat I strip, baseline 120bpm, salomon q2-3 min @1200 6/90/0 FHT: Cat 1 120/mod/+accel, no decel - will recheck in 2 hours - continue monitoring Pre-eclampsia Pr-Cr 0.4 in outpatient setting earlier this week. Blood pressure 140s/80s since arrival to L&D with one reported SBP 150s this AM. Symptoms include leg swelling, hand swelling, facial swelling. No severe features. - Pr/Cr ratio 0.5 on admission - Plt, LFTs wnl - continue to monitor BP closely, treat > 160/110 - most recent BP 141/80, HR 110 GBS unknown Collected in office on 06/27/20 - called CPL and results still pending - does not meet criteria for ppx txt w/ abx Hx HSV Has never had outbreak. Compliant with valtrex ppx. - external and speculum exam performed without evidence of lesion This case was discussed with Dr. Camarena. Addendum - Attending - Attending Attestation Date/Time: 07/02/20 8820 I personally evaluated the patient and discussed the management with the team. I agree with the History, Examination, Assessment and Plan documented above with any addition or exceptions noted below. IUPC placed and inadequate contractions. Titrate pitocin and continue close monitoring.
--- NOTE | 2020-07-02 14:30 | PDOC.LDPN ---
Labor & Delivery Progress Note - Objective Vital signs reviewed and normal: yes General: NAD, resting Uterine fundus: non tender SVE: /+1 FHT: category 1, variability present [place] contractions every: 2 min AROM: clear fluid IUPC placed: yes FSE placed: yes Plan: continue plan of care -: sIUP, mIOL 37.4 weeks today, sIUP. Admit for mIOL for pre-eclampsia. Cephalic presentation, confirmed with bedside sono. @1200 FT/50/-2 soft, mid, intact, 50 mcg PO cytotec @ 1215 @1600 FT/50/-2, 25 cytotec PV @5 /-2 @0030 /-1 @0130 /1, epidural given @0530 /-1 FHTs: cat I strip, baseline 120bpm, salomon q2-3 min @1200 6/90/0 FHT: Cat 1 120/mod/+accel, no decel. Possible transverse lie @1420 /+1 FHT: Cat 1 - will recheck in 2 hours - continue monitoring Pre-eclampsia Pr-Cr 0.4 in outpatient setting earlier this week. Blood pressure 140s/80s since arrival to L&D with one reported SBP 150s this AM. Symptoms include leg swelling, hand swelling, facial swelling. No severe features. - Pr/Cr ratio 0.5 on admission - Plt, LFTs wnl - continue to monitor BP closely, treat > 160/110 - most recent BP 117/57, HR 110 GBS unknown -Collected in office on 06/27/20 - called CPL and results still pending - does not meet criteria for ppx txt w/ abx Hx HSV Has never had outbreak. Compliant with valtrex ppx. - external and speculum exam performed without evidence of lesion This case was discussed with Dr. Camarena.
--- NOTE | 2020-07-02 18:55 | PDOC.LDPN ---
Labor & Delivery Progress Note - Subjective Subjective: comfortable - Objective Vital signs reviewed and normal: yes Abnormal vital signs: BPs in 130s-140s systolic General: NAD Uterine fundus: non tender Dilation: 9 Effacement: 90% Station: 1+ FHT: category 1, variability present [place] contractions every: 2-3min Plan: continue plan of care -: sIUP, mIOL 37.4 weeks today, sIUP. Admit for mIOL for pre-eclampsia. Cephalic presentation, confirmed with bedside sono. @1200 FT/50/-2 soft, mid, intact, 50 mcg PO cytotec @ 1215 @1600 FT/50/-2, 25 cytotec PV @5 /-2 @0030 /-1 @0130 /-1, epidural given @0530 /-1 FHTs: cat I strip, baseline 120bpm, salomon q2-3 min @1200 6/90/0 FHT: Cat 1 120/mod/+accel, no decel. Possible transverse lie @1420 7/90/+1 FHT: Cat 1 @1620 9/90/+1, cat I @1830 9/90/+1, Cat I, baseline 120s, pitocin at 20 - will recheck in 2 hours - continue monitoring Pre-eclampsia Pr-Cr 0.4 in outpatient setting earlier this week. Blood pressure 140s/80s since arrival to L&D with one reported SBP 150s this AM. Symptoms include leg swelling, hand swelling, facial swelling. No severe features. - Pr/Cr ratio 0.5 on admission - Plt, LFTs wnl - continue to monitor BP closely, treat > 160/110 - systolic BPs in 130s-140s GBS unknown -Collected in office on 06/27/20 - called CPL and results still pending - does not meet criteria for ppx txt w/ abx Hx HSV Has never had outbreak. Compliant with valtrex ppx. - external and speculum exam performed on admission without evidence of lesion Gestational Thrombocytopenia Monitor This case was discussed with Dr. Raymundo. ATTENDING ADDENDUM: I reviewed the heart tracing, vital signs, and tocometry. Patient had inadequate in the use on 20 milliunits of Pitocin. heart tracing category 1 and reassuring. At this time we will take Pitocin break as the patient has been on Pitocin continuously for almost 24 hours and allow her receptors to open up. I discussed with the patient and her the possibility of needing a primary for failure to dilate. I discussed that we are going to take every possible measure to prevent that from happening including patient repositioning, reinitiation of Pitocin, and possible replacement of internal monitors to assure that her intrauterine pressure is being monitored correctly. However if all that fails to bring her to 10 cm within the next 2-3 hours we will need to strongly consider proceeding with primary . I discussed the risk benefits alternatives for both options and answered all questions to the patient and her 's satisfaction.we will continue with labor augmentation and reevaluate in 2 hours.
[2020-07-02] MEDS ORDERED: NS w/ Oxytocin 10 units 500 ML IV SCH (20:45)
--- NOTE | 2020-07-02 21:43 | PDOC.LDPN ---
Labor & Delivery Progress Note - Subjective Subjective: comfortable - Objective Abnormal vital signs: temperature 100.8, otherwise vitals stable General: NAD, resting Uterine fundus: non tender Dilation: 8-9 Effacement: 90% Station: -1 FHT: category 1, variability present [place] contractions every: 3-4 min -: sIUP, mIOL 37.4 weeks today, sIUP. Admit for mIOL for pre-eclampsia. Cephalic presentation, confirmed with bedside sono. @1200 FT/50/-2 soft, mid, intact, 50 mcg PO cytotec @ 1215 @1600 FT/50/-2, 25 cytotec PV @5 /-2 @0030 /-1 @0130 /1, epidural given @0530 /-1 FHTs: cat I strip, baseline 120bpm, [place] q2-3 min @1200 6/90/0 FHT: Cat 1 120/mod/+accel, no decel. Possible transverse lie @1420 7/90/+1 FHT: Cat 1 @1620 9/90/+1, cat I @1830 9/90/+1, Cat I, baseline 120s, pitocin at 20 @2144 7/90/+1 there has been discrepency with the checks, FHTs: cat I, there was a period of tachycardia, but mom has been tachycardic as well - discussed possibility of going to csection with patient, plan to recheck in 1 hour and if no change go to section - continue monitoring IAI Temperature of 100.8 Mom has been tachycardic, but this is consistent with antepartum course - will start ampicillin/gentamycin Pre-eclampsia Pr-Cr 0.4 in outpatient setting earlier this week. Blood pressure 140s/80s since arrival to L&D with one reported SBP 150s this AM. Symptoms include leg swelling, hand swelling, facial swelling. No severe features. - Pr/Cr ratio 0.5 on admission - Plt, LFTs wnl - continue to monitor BP closely, treat > 160/110 - systolic BPs in 130s-140s GBS unknown -Collected in office on 06/27/20 - called CPL and results still pending - does not meet criteria for ppx txt w/ abx Hx HSV Has never had outbreak. Compliant with valtrex ppx. - external and speculum exam performed on admission without evidence of lesion Gestational Thrombocytopenia Monitor ATTENDING ADDENDUM: I had a long discussion with the patient and her at approximately 2200 hrs. at this point the patient had developed an intra-amniotic infection. She was having worsening tachycardia and developed a fever of 100.8 Fahrenheit. Infant was also experiencing intermittent runs of tachycardia into the 170s. Outside tachycardia heart tracing was reassuring. Nursing staff was also concerned that there is a discrepancy in the cervical exam from the previous evaluation and felt the patient was closer to 6-7 cm dilated. I again discussed the option of proceeding with a primary with the patient and her . I discussed at length the risk, benefits, alternatives, and indications of both continuing with labor augmentation versus proceeding with primary . at time they would like to continue with labor augmentation. I informed them that if she did not make significant change within the next 1-2 hours I would recommend proceeding with a primary for arrest of dilation. I also informed them that if at any point the showed additional signs of distress it would be my recommendation to proceed with a primary due to concern for the . They expressed understanding and I answered all their questions to their satisfaction.
[2020-07-02] MEDS: Ampicillin 2 GM in Sodium Chloride 0.9% 100 ML IVPB SCH (22:15)
[2020-07-02] MEDS ORDERED: Lactated Ringer's 1,000 ML IV SCH (23:45)
--- NOTE | 2020-07-02 23:54 | PDOC.LDPN ---
Labor & Delivery Progress Note - Subjective Subjective: comfortable - Objective Abnormal vital signs: Temperature 100.7, tachycardic in 130s, BP 146/75 General: NAD, resting Uterine fundus: non tender Dilation: 8 Effacement: 90% Station: 0 FHT: category 1, variability present [place] contractions every: 3-4 Plan: continue plan of care -: sIUP, mIOL 37.5 weeks today, sIUP. Admit for mIOL for pre-eclampsia. Cephalic presentation, confirmed with bedside sono. @1200 FT/50/-2 soft, mid, intact, 50 mcg PO cytotec @ 1215 @1600 FT/50/-2, 25 cytotec PV @5 2 @0030 /-1 @0130 /1, epidural given @0530 /-1 FHTs: cat I strip, baseline 120bpm, [place] q2-3 min @1200 6/90/0 FHT: Cat 1 120/mod/+accel, no decel. Possible transverse lie @1420 7/90/+1 FHT: Cat 1 @1620 9/90/+1, cat I @1830 9/90/+1, Cat I, baseline 150s, pitocin at 20 @2144 7/90/+1 there has been discrepency with the checks, cat I, there was a period of tachycardia, but mom has been tachycardic as well @2330 8/90/0, cat I, baseline 150s/mod/+accel, no decel - since patient has made change, will continue with plan of care and recheck in 2 hours, if no change at that time will likely go to csection IAI Temperature of 100.8 Mom has been tachycardic, but this is consistent with antepartum course - will start ampicillin/gentamycin Pre-eclampsia Pr-Cr 0.4 in outpatient setting earlier this week. Blood pressure 140s/80s since arrival to L&D with one reported SBP 150s this AM. Symptoms include leg swelling, hand swelling, facial swelling. No severe features. - Pr/Cr ratio 0.5 on admission - Plt, LFTs wnl - continue to monitor BP closely, treat > 160/110 - systolic BPs in 130s-140s GBS unknown -Collected in office on 06/27/20 - called CPL and results still pending - does not meet criteria for ppx txt w/ abx Hx HSV Has never had outbreak. Compliant with valtrex ppx. - external and speculum exam performed on admission without evidence of lesion Gestational Thrombocytopenia Monitor ATTENDING ADDENDUM: We will continue labor augmentation. Primary still a possibility and will proceed for her previously stated indications.
[2020-07-02] MEDS ORDERED: FENTANYL CITRATE EPIDURAL SCH (23:59)
[2020-07-02] MEDS ORDERED: ROPIVACAINE EPIDURAL SCH (23:59)
[2020-07-02] MEDS ORDERED: SODIUM CHLORIDE 0.9% EPIDURAL SCH (23:59)
--- NOTE | 2020-07-03 01:57 | PDOC.EVN ---
Event Note - Event Note Event Note: After 4 hours of resumed pitocin augmentation, patient has remained at approximately 8/80/0. Patient asked to discuss R/B/A/I of options at this point. I rediscussed continued labor augmentation vs pLTCS including risk for shoulder dystocia, sepsis from IAI, and possibility of continued arrest of dilation in the future. I discussed that at this time the overall status was reassuring but given her prolonged course of labor and ROM that could change at any point, requiring an emergent c/s. I told her that at this point, we have exhausted all of our options to work towards an and at this point, I feel a pLTCS is the safer option for her and her baby and that the odds of her having a successful were becoming lower as time has progressed. She and her agreed with this and consented to proceed with a pLTCS. All of their questions were answered to their satisfaction. Ancef 2g and Azithro 500 mg added to abx coverage. Will continue abx for 24 hrs PP given likely IAI. Diagnosis: 1. Arrest of Dilation 2. IAI 3. Pre-eclampsia 4. Prolonged ROM 5. sIUP at 37 wk 6. Dysfunctional labor
[2020-07-03] MEDS ORDERED: Azithromycin 500 MG in Sodium Chloride 0.9% 250 ML 250 ML IVPB SCH (02:00)
[2020-07-03] MEDS ORDERED: CEFAZOLIN 2 GM in Premix Bag 1 BAG IVPB SCH (02:00)
--- NOTE | 2020-07-03 02:04 | PDOC.LDPN ---
Labor & Delivery Progress Note - Subjective Subjective: comfortable, painful contractions - Objective Vital signs reviewed and normal: yes General: NAD Dilation: 8 Effacement: 90% Station: 0 FHT: category 1, variability present [place] contractions every: 2-4min Plan: continue plan of care -: sIUP, mIOL 37.5 weeks today, sIUP. Admit for mIOL for pre-eclampsia. Cephalic presentation, confirmed with bedside sono. @1200 FT/50/-2 soft, mid, intact, 50 mcg PO cytotec @ 1215 @1600 FT/50/-2, 25 cytotec PV @5 /-2 @0030 /-1 @0130 /1, epidural given @0530 /-1 FHTs: cat I strip, baseline 120bpm, [place] q2-3 min @1200 6/90/0 FHT: Cat 1 120/mod/+accel, no decel. Possible transverse lie @1420 7/90/+1 FHT: Cat 1 @1620 9/90/+1, cat I @1830 9/90/+1, Cat I, baseline 150s, pitocin at 20 @2144 7/90/+1 there has been discrepency with the checks, cat I, there was a pe riod of tachycardia, but mom has been tachycardic as well @2330 8/90/0, cat I, baseline 150s/mod/+accel, no decel @0130 8/90/0, cat I baseline 250s/mod/+accel, no decel - after discussing the risks and benefits of csection now vs continued labor, patient and in agreement that we will go to csection now due to failure to progress, inadequate contractions and IAI IAI Mom has been tachycardic, but this is consistent with antepartum course Tmax 100.8, now 99.8 s/p starting gentamycin and ampicillin Pre-eclampsia Pr-Cr 0.4 in outpatient setting earlier this week. Blood pressure 140s/80s since arrival to L&D with one reported SBP 150s this AM. Symptoms include leg swelling, hand swelling, facial swelling. No severe features. - Pr/Cr ratio 0.5 on admission - Plt, LFTs wnl - continue to monitor BP closely, treat > 160/110 - systolic BPs in 130s-140s GBS unknown -Collected in office on 06/27/20 - called CPL and results still pending - does not meet criteria for ppx txt w/ abx Hx HSV Has never had outbreak. Compliant with valtrex ppx. - external and speculum exam performed on admission without evidence of lesion Gestational Thrombocytopenia Monitor
[2020-07-03] MEDS ORDERED: Oxytocin 10 UNITS/ML VIAL ONE ×2 (02:08→03:21)
[2020-07-03] MEDS ORDERED: Ondansetron PF 4 MG/2 ML Vial ONE (02:30)
[2020-07-03] MEDS ORDERED: Fentanyl 100 MCG/2 ML VIAL ONE ×3 (02:37→03:26)
[2020-07-03] MEDS ORDERED: Midazolam HCl 2 mg/2 ml Vial ONE (02:47)
[2020-07-03] MEDS ORDERED: Meperidine HCl/PF 25 MG/ML VIAL SLOW IVP PRN (02:52)
[2020-07-03] MEDS ORDERED: diphenhydrAMINE 50 MG/ML VIAL IVP PRN (02:52)
[2020-07-03] MEDS ORDERED: Promethazine HCl 25 MG SUPP PR PRN (02:52)
[2020-07-03] MEDS ORDERED: HYDROmorphone 2 MG/ML VIAL SLOW IVP PRN (02:52)
[2020-07-03] MEDS ORDERED: Naloxone HCl 0.4 mg/ml Vial IVP PRN ×2 (02:52)
[2020-07-03] MEDS ORDERED: Promethazine HCl 25 MG/ML VIAL IM PRN (02:52)
[2020-07-03] MEDS ORDERED: L&D-Morphine 4 MG/ML VIAL SLOW IVP PRN (02:52)
[2020-07-03] MEDS ORDERED: Naloxone HCl 0.4 mg/ml Vial IV PRN (02:52)
[2020-07-03] MEDS ORDERED: Communication Order-Pharmacy FS SCH (03:00)
[2020-07-03] MEDS ORDERED: Ketorolac Tromethamine 30 MG/ML VIAL IVP SCH (03:00)
[2020-07-03 03:41] LABS: Actual Bicarbonate (HCO3v) 24 mEq/L (22-28); Analyzer IN Cardio OR; Base Excess -3.4 mEq/L (-2.0 to +3.0)
--- NOTE | 2020-07-03 03:48 | PDOC.OPDEL ---
OB Operative/Delivery Note Delivery Dr/Surgeon: Dr. Duff, with Dr. mortensen attending Assist: Dr. Kenyon Pre-Delivery Diagnosis: arrest of dilation Procedure/Post Delivery Dx: primary low transverse CS Weeks gestation: 37 (37.5) Anesthesia: epidural - Additional Findings/Plan Placenta delivered: manual removal findings: low transverse hysterotomy with extension Estimated blood loss: 855 Compilations/Other Findings: Date of Procedure: 07/03/20 Resident Surgeons: Dr. Duff Assist: Dr. Kenyon Attending Surgeon: Dr. Mortensen Procedure: primary low transverse caesarean section Preoperative Diagnosis: 1) Term intrauterine 2) Pre-eclampsia 3) arrest in dilation 4) IAI 5) Prolonged ROM 6) Dysfunctional labor Postoperative Diagnosis: 1) Term delivered 2) bilateral lower uterine segment extension with repair 3) same as above Anesthesia: epidural Indications: 30 year old @ 37.5 wks presents for mIOL for pre-E, and had arrest in dilation which indicated a primary LTCS. Procedure in Detail: After risks, benefits, and alternatives were explained to the patient, she gave informed consent. Pre-operative antibiotics included ancef 2 g and azithromycin 500 mg. The patient was taken to the operating room and anesthesia was placed. She was placed in the supine position with a left tilt and prepped and draped in usual sterile fashion. A Pfannenstiel incision was made with a scalpel and carried down to the level of the fascia which was s harply nicked. Multiple bleeders were attended to and she was hemostatic. The fascial cut was extended bilaterally with blunt dissection. The inferior and superior edges of the cut fascial edges were elevated with Johny clamps and the underlying rectus muscles bluntly dissected free. The recti were divided using blunt dissection. The peritoneum was entered bluntly and retracted manually. The uterus was palpated and found to be free of adhesions, there was a small uterine fibroid on the anterior surface of uterus. An Kishor-O was placed. A low transverse score was made with the scalpel and the uterus was entered in the midline with the yanker suction. Amniotomy performed with allis. Clear fluid was seen. The hysterotomy was extended manually. The was noted to be LOP and was deeply impacted. After one failed attempt by me to delivery head, Dr. Mortensen took over delivery. He disimpacted the head from the pelvic outlet, and then the head was having difficulty delivering at his angle. I took back over at this time and was able to flex head and neck for delivery of fetus. was not crying and had poor tone. Cord clamped immediately and infant taken to warmer with NICU nurse at bedside. Cord blood and cord gas was obtained. Placenta was manually extracted, found to be intact with 3 vessel cord and was sent to path. The uterus was left in the abdomen and curetted with a dry lap. Ring forceps were applied to the hysterotomy edges for hemostasis and the endometrium was curetted with a dry lap. The hysterotomy had cervical extensions bilaterally that were explored to the base. Each side was closed with a 1-0 monocryl and tied off. Then the midline hysterotomy was closed in a locking, running fashion with a 1-0 monocryl. An Imbricating layer using a 1-0 monocryl was applied in a running fashion. There was a small amount of oozing at the level of bilateral apex hysterotomy edges, which was hemostatic after flowseal and 1 minute of pressure . Following this hemostasis was appreciated. The Kishor-O was removed. Bladder blade was placed and the hysterotyomy was again noted to be hemostatic. The hysterotomy tags were then cut. The peritoneal layer was closed using a 3-0 monocryl in a running fashion. The rectus was evaluated for bleeders, and found to be hemostatic. The fascia was closed with a running non-locking 0-PDS suture. The subcutaneous tissue was irrigated and the bleeders were attended to with bovie and was reapproximated using a 2-0 plain gut. The skin was approximated with 4-0 monocryl with dermabond over the incision, and a pressure bandage was placed. All counts were correct times 3. The patient tolerated the procedure well and was taken to the recovery room in stable condition. QBL: 855 Time of delivery: 0241 Complications: Bilateral cervical uterine segment extensions Specimens: placenta, cord blood and cord gas Findings: viable male with apgars 1/7/9 requiring approx 5 min of PPV and CPAP from NICU team Drains: [place] to gravity draining clear urine pre and post operatively. Plan to continue IV Antibiotics for 24 hours post op to treat IAI ATTENDING ADDENDUM: I was present for and supervised all levy portions of this procedure. I manually disimpacted the head from the pelvis and performed the primary closure of the hysterotomy and extension repair. Hemostasis of the hysterotomy was noted after the imbricating layer. patient tolerated the procedure well and went to the normal recovery room. Infant initially had an episode of apnea following delivery that required approximate 5 minutes P PV and CPAP. However he made a successful transition of life and did not require further respiratory support and will go to the well nursery. We will continue IV antibiotics for 24 hours to treat her entry amniotic infection. Blood cultures taken on the due to equivocal risk for sepsis. Post delivery plan: recovery in LICU
[2020-07-03] MEDS: Ketorolac Tromethamine 30 MG/ML VIAL IVP PRN ×3 (04:18→18:16)
[2020-07-03] MEDS: Ampicillin 2 GM in Sodium Chloride 0.9% 100 ML IVPB SCH ×4 (04:23→21:44)
[2020-07-03] MEDS ORDERED: Lanolin Ointment 7 GM TUBE TOP PRN (05:56)
[2020-07-03] MEDS ORDERED: hydrALAZINE 20 MG/ML VIAL SLOW IVP PRN (05:56)
[2020-07-03] MEDS ORDERED: Bisacodyl 10 MG SUPP PR PRN (05:56)
[2020-07-03] MEDS ORDERED: diphenhydrAMINE 25 MG CAP PO PRN (05:56)
[2020-07-03] MEDS ORDERED: HYDROcodone/Acetaminophen 5/325 mg Tablet PO PRN (05:56)
--- NOTE | 2020-07-03 07:16 | PDOC.BPN ---
- Brief Progress Note Encounter Date: 07/03/20 Encounter Time: 07:00 4 Hour Post check: S: resting comfortably, some pain with moving around, otherwise feeling well O: tachycardia 110s, no acute distress, no bleeding on palpation of fundus but some uterine tenderness, firm uterus below the umbilicus, per report from nursing diuresis has been adequate, reflexes 1+ bilaterally, no clonus A/P: - continue abx amp/gent for 24 hrs post due to T max 100.8F intrapartum - will check hgb given tachycardia, QBL was 855 - BP has been wnl since delivery, continue to monitor closely in setting of pre- e B.Rehg, PGY-1
[2020-07-03 08:08] LABS: Hemoglobin 10.3 g/dL (12.0-16.0); Mean Corpuscular HGB CONC 35.6 g/dL (32.0-36.0); Mean Corpuscular Volume 89.7 fL (78.0-98.0); Mean Platelet Volume 7.7 fL (7.4-10.4); Platelet Count 149 thou/uL (130-400); RBC Distribution Width 12.6 % (11.5-14.5); Red Blood Cell (RBC) Count 3.21 mill/uL (4.20-5.40); White Blood Cell (WBC) Count 12.1 thou/uL (4.8-10.8)
[2020-07-03] MEDS ORDERED: Ferrous Sulfate 325 MG TAB PO SCH (09:00)
[2020-07-03] MEDS: Ferrous Fumarate 324 MG TAB PO SCH (11:43)
[2020-07-03] MEDS: Docusate Calcium (SURFAK) 240 MG CAP PO SCH ×2 (11:43→21:45)
[2020-07-03] MEDS: Prenatal Vitamin 1 TAB PO SCH (11:43)
[2020-07-03 12:52] LABS: SARS-CoV-2 MS2 Positive; SARS-CoV-2 N Gene Negative; SARS-CoV-2 S Gene Negative; SARS-CoV-2 by NAA Not Detected (NotDetected); SARS-CoV-2 orf1ab Negative
[2020-07-03] MEDS: HYDROcodone/Acetaminophen 5/325 mg Tablet PO PRN ×2 (15:28→20:01)
--- NOTE | 2020-07-03 17:05 | PDOC.BPN ---
- Brief Progress Note Encounter Date: 07/03/20 Encounter Time: 16:45 Brief Progress note: Called by nursing to report tachycardia to 120s, dark urine output, 35 cc/h urine over past 8 hours. Other VSS and vaginal bleeding has been 86 mL over past 8 hours per report. Evaluated patient at bedside, reports exhaustion and poor PO intake due to being tired. Suspect that this is the reason for her output and vitals. Ordered 1L LR bolus and stat H/H. Will re-evaluate after bolus. Discussed with Dr. Duff, PGY-2. B.Rehg PGY1
[2020-07-03 17:06] LABS: Hemoglobin 9.4 g/dL (12.0-16.0)
[2020-07-03] MEDS: hydrOXYzine 25 MG TAB PO SCH (21:45)
[2020-07-03] MEDS: Lactated Ringer's 1,000 ML IV SCH (21:46)
[2020-07-04] MEDS: Ketorolac Tromethamine 30 MG/ML VIAL IVP PRN (00:09)
[2020-07-04] MEDS: HYDROcodone/Acetaminophen 5/325 mg Tablet PO PRN ×5 (00:40→20:03)
[2020-07-04] MEDS: hydrOXYzine 25 MG TAB PO SCH ×3 (03:48→10:21)
[2020-07-04] MEDS: Lactated Ringer's 1,000 ML IV SCH ×2 (04:07→10:21)
[2020-07-04] MEDS: Ibuprofen 800 MG TAB PO SCH ×3 (05:52→21:41)
[2020-07-04 06:10] LABS: Mean Corpuscular HGB CONC 34.6 g/dL (32.0-36.0); Mean Corpuscular Hemoglobin 30.9 pg (27.0-31.0); Mean Corpuscular Volume 89.1 fL (78.0-98.0); Mean Platelet Volume 7.4 fL (7.4-10.4); Platelet Count 145 thou/uL (130-400); RBC Distribution Width 12.7 % (11.5-14.5); White Blood Cell (WBC) Count 9.2 thou/uL (4.8-10.8)
--- NOTE | 2020-07-04 06:43 | PDOC.PP ---
Post Progress Note Post Day #: 1 Subjective: Adri is feeling better this morning. Ambulated to bathroom and around room, now sitting up in chair. Has not passed gas. Urinating well. Pain well controlled. N o new concerns. PO intake tolerated: yes Flatus: no Ambulation: yes Vital Signs (12 hours) Temp Pulse Resp BP Pulse Ox 07/04/20 04:00 98.3 F 116 H 19 118/57 L 99 07/04/20 00:11 98.8 F 124 H 16 118/65 07/03/20 19:31 98.5 F 126 H 16 119/63 Weight Weight 89.358 kg - Physical Examination General: NAD Cardiovascular: RRR (tachycardic) Respiratory: clear to auscultation bilaterally, non-labored breathing Abdominal: + bowel sounds, appropriately TTP (slight gaseous distention) Deviation from normal: 2+ pitting edema BLE Neurological: no gross focal deficits Psychiatric: A&Ox3, normal affect Result Diagrams: 07/04/20 05:49 07/01/20 11:42 Additional Labs: Post Labs Hep Bs Antigen Non-Reactive S/CO (NonReactive) 07/01/20 11:42 Blood Type O NEGATIVE 07/01/20 11:42 - Assessment/Plan - , wellness consultant - s/p rhogam 07/03 - [place] prn pain. Well controlled and improving overall - continues to have tachycardia, though sinus tachycardia is a known problem, has followed with cardiology outpatient. Hgb 9 and now s/p bolus yesterday evening - Desires to avoid hormonal contraceptive options. Will likely want to do natural family planning/condoms. IAI, resolved - Tmax 100.8 intrapartum - s/p amp/gent for 24hr PP Pre-eclampsia, resolved - Pr/Cr ratio 0.5 on admission - PP BPs all wnl GBS unknown -Collected in office on 06/27/20 -test was not performed due to lab error - did not meet criteria for ppx txt w/ abx Hx HSV Has never had outbreak. Compliant with valtrex ppx, can now d/c - external and speculum exam performed on admission without evidence of lesion Gestational Thrombocytopenia - monitor Plan: continue routine PP care, bowel regimen and encouraged to ambulate today Addendum - Attending - Attending Attestation Date/Time: 07/04/20 1338 I personally evaluated the patient and discussed the management with the team. I agree with the History, Examination, Assessment and Plan documented above with any addition or exceptions noted below. Ambulate TID, IS to bedside. Pain mgmt and bowel regimen.
[2020-07-04] MEDS: Prenatal Vitamin 1 TAB PO SCH (09:33)
[2020-07-04] MEDS: Docusate Calcium (SURFAK) 240 MG CAP PO SCH (09:33)
[2020-07-04] MEDS: Ferrous Fumarate 324 MG TAB PO SCH (09:34)
[2020-07-04] MEDS ORDERED: hydrOXYzine 25 MG TAB PO PRN (10:51)
[2020-07-04] MEDS: Simethicone Chewable 80 MG TAB PO PRN (13:39)
[2020-07-05] MEDS: Docusate Calcium (SURFAK) 240 MG CAP PO SCH ×3 (00:13→22:07)
[2020-07-05] MEDS: HYDROcodone/Acetaminophen 5/325 mg Tablet PO PRN ×6 (00:15→23:32)
[2020-07-05] MEDS: Simethicone Chewable 80 MG TAB PO PRN ×4 (00:15→22:07)
[2020-07-05] MEDS: Ibuprofen 800 MG TAB PO SCH ×3 (05:04→22:07)
--- NOTE | 2020-07-05 06:30 | PDOC.PP ---
Post Progress Note Post Day #: 2 Subjective: Adri is doing well. Ambulating, tolerating PO, voiding "large amounts" and passed flatus with 2 loose BM yesterday. Feels slightly distended in her abdomen and endorses some mild back pain. Mild lochia. Breast feeding well and bonding with baby. PO intake tolerated: yes Flatus: yes Ambulation: yes Vital Signs (12 hours) Temp Pulse Resp BP Pulse Ox 07/05/20 00:15 97.7 F 104 H 20 137/76 07/04/20 21:23 98.6 F 115 H 20 147/70 H 99 Weight Weight 89.358 kg - Physical Examination General: NAD Cardiovascular: no m/r/g Deviation from normal: tachycardic; regular rhythm Respiratory: clear to auscultation bilaterally, non-labored breathing Abdominal: + bowel sounds, appropriately TTP Deviation from normal: abdominal distention present Fundus firm & at: 1cm below the umbilicus Deviation from normal: 1+ pitting edema BLE Skin: CS incision dry & intact Deviation from normal: small abrasion left where adhesive was placed Neurological: no gross focal deficits Psychiatric: A&Ox3, normal affect Result Diagrams: 07/04/20 05:49 07/01/20 11:42 Additional Labs: Post Labs Hep Bs Antigen Non-Reactive S/CO (NonReactive) 07/01/20 11:42 Blood Type O NEGATIVE 07/01/20 11:42 (1) care and examination Code(s): Z39.2 - ENCOUNTER FOR ROUTINE FOLLOW-UP Status: Acute - Assessment/Plan # Day #2 - well, has met with - mild lochia - s/p rhogam 07/03 - [place] prn pain. Well controlled and improving overall. Required 10 tabs of [place] throughout the day yesterday, will send home with norco script - continues to have tachycardia, though sinus tachycardia is a known problem, has followed with cardiology outpatient. Hgb stable yesterday. Will encourage continued f/u with cardiology - Desires to avoid hormonal contraceptive options. Will likely want to do natural family planning/condoms. Will continue to safety counselor at pp visit - Passed flatus with 2 loose BM yesterday. +BS. - Ambulating well - Will f/u at [facility] within the next week for BP f/u #IAI, resolved - Tmax 100.8 intrapartum - s/p amp/gent for 24hr PP - VSS, afebrile #Pre-eclampsia, resolved - Pr/Cr ratio 0.5 on admission - PP BPs: one elevated last night of 147/70, the rest have been normal; patient reports she had an altercation with nursing staff yesterday when she tried to walk around with her baby and nursing told her that she could not do that, so she became upset and started to yell at nurses. Adri states that immediately after the altercation nursing took her BP and it was elevated. - Has continued to have lower extremity edema - Reports increased urine output since delivery - Will follow up blood pressure in clinic #GBS unknown -Collected in office on 06/27/20 -test was not performed due to lab error - did not meet criteria for ppx txt w/ abx #Hx HSV Has never had outbreak. Compliant with valtrex ppx, can now d/c - external and speculum exam performed on admission without evidence of lesion #Gestational Thrombocytopenia - monitor Plan: continue routine PP care, will likely d/c home Addendum - Attending - Attending Attestation Date/Time: 07/06/20 [id number] I personally evaluated the patient and discussed the management with the team. I agree with the History, Examination, Assessment and Plan documented above with any addition or exceptions noted below. BUE edema improved but BLE edema and lower abdominal edema still present. Keep one more day and monitor.
[2020-07-05] MEDS: Ferrous Fumarate 324 MG TAB PO SCH (09:13)
[2020-07-05] MEDS: Prenatal Vitamin 1 TAB PO SCH (09:13)
[2020-07-06] MEDS: Ibuprofen 800 MG TAB PO SCH ×3 (05:27→21:14)
[2020-07-06] MEDS: Simethicone Chewable 80 MG TAB PO PRN ×4 (05:27→21:14)
[2020-07-06] MEDS: HYDROcodone/Acetaminophen 5/325 mg Tablet PO PRN ×3 (05:28→17:59)
[2020-07-06] MEDS: Prenatal Vitamin 1 TAB PO SCH (08:35)
[2020-07-06] MEDS: Docusate Calcium (SURFAK) 240 MG CAP PO SCH ×2 (08:35→21:14)
[2020-07-06] MEDS: Ferrous Fumarate 324 MG TAB PO SCH (08:35)
[2020-07-06 08:58] LABS: Hemoglobin 9.7 g/dL (12.0-16.0); Mean Corpuscular HGB CONC 32.8 g/dL (32.0-36.0); Mean Corpuscular Hemoglobin 29.8 pg (27.0-31.0); Mean Platelet Volume 6.9 fL (7.4-10.4); Platelet Count 213 thou/uL (130-400); RBC Distribution Width 12.4 % (11.5-14.5); Red Blood Cell (RBC) Count 3.24 mill/uL (4.20-5.40); White Blood Cell (WBC) Count 4.9 thou/uL (4.8-10.8)
[2020-07-06 09:16] LABS: ALT (SGPT) 22 U/L (8-55); AST (SGOT) 23 U/L (5-34); Albumin 2.9 g/dL (3.5-5.0); Alkaline Phosphatase 115 U/L (40-110); Anion Gap 13 mmol/L (10-20); BUN (Urea Nitrogen) 11 mg/dL (7.0-18.7); Bilirubin, Total 0.2 mg/dL (0.2-1.2); Calc. Creatinine Clearance 175 mL/min (70-130); Calcium 8.5 mg/dL (7.8-10.44); Carbon Dioxide 23 mmol/L (22-29); Chloride 107 mmol/L (98-107); Estimated GFR-MDRD Greater than 90; Globulin 2.6 g/dL (2.4-3.5); Glucose 80 mg/dL (70-105); Potassium 3.6 mmol/L (3.5-5.1); Protein, Total 5.5 g/dL (6.0-8.3); Sodium 139 mmol/L (136-145)
[2020-07-06] MEDS ORDERED: Furosemide 20 MG/2 ML VIAL SLOW IVP SCH (10:00)
[2020-07-06] MEDS ORDERED: Furosemide 20 MG TAB PO SCH (10:00)
--- NOTE | 2020-07-06 10:56 | PDOC.PP ---
Post Progress Note Post Day #: 3 Subjective: Patient reports feeling well overall. Pain is well controlled and seems to be improving. Has had improved PO intake. LE edema has worsened and is now all the way up the legs. She is urinating normally. Denies SOB, CP, dyspnea with exertion. She walked down the stairs last night without difficulty but didnt want to walk up due to leg pain from swelling. No orthopnea though she sleep with bed raised due to low back pain from mattress. PO intake tolerated: yes Flatus: yes Ambulation: yes Vital Signs (12 hours) Temp Pulse Resp BP Pulse Ox 07/06/20 08:33 98.9 F 101 H 18 155/91 H 99 Weight Weight 89.358 kg - Physical Examination General: NAD Cardiovascular: no m/r/g, RRR Respiratory: clear to auscultation bilaterally, non-labored breathing Abdominal: no distention, appropriately TTP Deviation from normal: 2+ pitting edema BLE up to hips. Also has area of pitting edema on low abd Neurological: no gross focal deficits Psychiatric: A&Ox3, normal affect Result Diagrams: 07/06/20 08:49 07/06/20 08:49 Additional Labs: Post Labs Hep Bs Antigen Non-Reactive S/CO (NonReactive) 07/01/20 11:42 Blood Type O NEGATIVE 07/01/20 11:42 - Assessment/Plan # Day #3 - /pumping, has met with - mild lochia - s/p rhogam 07/03 - [place] prn pain. Well controlled and improving overall. Will send home with norco script - continues to have tachycardia, though sinus tachycardia is a known problem, has followed with cardiology outpatient. Hgb stable. Will encourage continued f/u with cardiology - Desires to avoid hormonal contraceptive options. Will likely want to do natural family planning/condoms. Will continue to peer financial counselor at pp visit - Continue bowel regimen and ambulation - Will f/u at [facility] within the next week for BP f/u - worsening edema is concerning. Ordered labs for further evaluation this am. Pending these, consider echo to rule out PP cardiomyopathy #IAI, resolved - Tmax 100.8 intrapartum - s/p amp/gent for 24hr PP #Pre-eclampsia, resolved - Pr/Cr ratio 0.5 on admission - PP BPs: overnight stable, slight uptrend with few readings in 130s. Patient reports being more agitated. - Will follow up blood pressure in clinic #GBS unknown -Collected in office on 06/27/20 -test was not performed due to lab error - did not meet criteria for ppx txt w/ abx #Hx HSV Has never had outbreak. Compliant with valtrex ppx, can now d/c - external and speculum exam performed on admission without evidence of lesion #Gestational Thrombocytopenia - monitor Plan: concern for worsening edema, labs this am pending Addendum - Attending - Attending Attestation Date/Time: 07/06/20 2281 I personally evaluated the patient and discussed the management with the team. I agree with the History, Examination, Assessment and Plan documented above with any addition or exceptions noted below. BNP elevated, although mild, and with worsening edema will give lasix and obtain TTE. Discussed with mother.
[2020-07-06] MEDS ORDERED: Calcium Carbonate 500 MG ChewTAB PO PRN (13:19)
[2020-07-06] MEDS ORDERED: Zolpidem Tartrate 5 MG TAB PO SCH (21:55)
--- NOTE | 2020-07-07 00:56 | PDOC.EVN ---
Event Note - Event Note Event Note: I had a long discussion with the patient and her regarding the hospital course for her and her baby. Discussed that she was showing signs that her pre- eclampsia may worsening given her elevated BP and worsening swelling. Explained possible complications including seizure and CVA. Patient also c/o back pain and poor sleep offered patient OMT with Dr. Peña who was able to treat the patient this evening. Also offered one time dose of ambien to help her sleep discussed possible risks associated with her breast feeding. Given that she has had poor sleep and that the plan is for a one time dose, I felt the benefits of adequate sleep on the patient's overall mental status outweighed possible risks of the medication transferring into her breastmilk. I also discussed with the patient that her infant missing a single feeding would not likely cause a significant change in her milk supply but continued stress could lead to decreased milk supply. Encouraged her to consider having the nursery staff feed the baby overnight so she could rest. Also discussed her chest pressure that had been occurring today. BNP and TTE were unremarkable. I ordered a trop and EKG both of which were unremarkable. I suspect her chest pain is likely anxiety related. All questions were answered to her and her 's satisfaction.
[2020-07-07] MEDS: Simethicone Chewable 80 MG TAB PO PRN (06:04)
[2020-07-07] MEDS: Ibuprofen 800 MG TAB PO SCH (06:04)
[2020-07-07] MEDS: HYDROcodone/Acetaminophen 5/325 mg Tablet PO PRN ×2 (06:04→13:15)
--- NOTE | 2020-07-07 06:51 | PDOC.PP ---
Post Progress Note Post Day #: 4 Subjective: Pt states that this mornign when she was having her BP taken she was very workup up and her anxiety about being here in increasing. Pt denies SINGH. states her feet are smaller today and less swelling, she feels like she can urology physician her toes when before she could not. Pt denies RUQ abd pain. establishing feedings well and very proud of the amount of breast milk she expressed after feeding this AM. PO intake tolerated: yes Flatus: yes Ambulation: yes Vital Signs (12 hours) Temp Pulse Resp BP Pulse Ox 07/07/20 06:40 89 142/84 H 97 07/07/20 06:25 98.7 F 88 34 H 161/80 H 96 07/07/20 06:15 88 36 H 175/91 H 07/07/20 06:00 81 164/87 H 07/06/20 23:40 98.7 F 95 16 138/80 07/06/20 19:58 99 157/87 H 07/06/20 19:43 98.8 F 99 20 167/89 H 99 Weight Weight 89.358 kg - Physical Examination General: NAD Cardiovascular: no m/r/g, RRR Respiratory: clear to auscultation bilaterally, non-labored breathing Abdominal: + bowel sounds, lochia, no distention, appropriately TTP Extremities: negative homans (B) Deviation from normal: pitting edema up to knees bilaterally. improved from yes terdays exam. Skin: CS incision dry & intact, no rash Neurological: no gross focal deficits Psychiatric: A&Ox3 Deviation from normal: anxious affects Result Diagrams: 07/06/20 08:49 07/06/20 08:49 Additional Labs: Post Labs Hep Bs Antigen Non-Reactive S/CO (NonReactive) 07/01/20 11:42 Blood Type O NEGATIVE 07/01/20 11:42 (1) care and examination Code(s): Z39.2 - ENCOUNTER FOR ROUTINE FOLLOW-UP Status: Acute - Assessment/Plan # Day #4 - /pumping, has met with several times. producing milk. - mild lochia - s/p rhogam 07/03 - Lorraine prn pain-weaning. Well controlled and improving overall. Will send home with norco script - continues to have tachycardia, though sinus tachycardia is a known problem, has followed with cardiology outpatient. Hgb stable. Will encourage continued f/u with cardiology - Desires to avoid hormonal contraceptive options. Will likely want to do natural family planning/condoms. Will continue to veterans' counselor at pp visit - Continue bowel regimen and ambulation - Will f/u at [facility] within the next week for BP f/u. started on nifedipine today. #Edema - Edema improved from yesterday - labs: nml Liver enzymes, Cr 0.65. - UOP 4600 mL yesterday after one time PO lasix 40 mg dose. - Echo: EF 55-60%, nml LA and LV size. Mod-severe tricuspid and mitral regurg - EKG and Trop drawn overnight wnl. #IAI- resolved - Tmax 100.8 intrapartum - s/p amp/gent for 24hr PP #Pre-eclampsia - Pr/Cr ratio 0.5 on admission - Severe range BP 11/6 AM. Started nifedipine XL 30 mg once daily. - f/u in clinic in 3 days for BP recheck. - retuen precautions explained in detail to pt, SINGH, RUQ abd pain, and vision changes. #GBS unknown -Collected in office on 06/27/20 -test was not performed due to lab error - did not meet criteria for ppx txt w/ abx #Hx HSV Has never had outbreak. Compliant with valtrex ppx, can now d/c - external and speculum exam performed on admission without evidence of lesion #Gestational Thrombocytopenia - improved - monitor Plan: planning d/c home today with nml echo, improved feeding with and close f/u in outpt setting for BP control. Addendum - Attending - Attending Attestation Date/Time: 07/07/20 1550 I personally evaluated the patient and discussed the management with resident team I agree with the History, Examination, Assessment and Plan documented above with any addition or exceptions noted below. Pt doing well. Continues to improve. Good diuresis of 7L. Will give lasix dose prior to d/c. Sent home with at least week worth. Discussed possible difficulty with breast feeding. Possible early evolution of post op wound complication. Mild cellulitis. Oral antibx sent. Follow up on Friday. ER if not improvement or worsing. Ok to d/c home. Follow up on Friday. Monitor daily weights and BP at home. ABrayMD
[2020-07-07 08:21] VITALS: BP 133/64; TEMP 99.1
[2020-07-07] MEDS ORDERED: NIFEdipine XL 30 MG TAB PO SCH (09:00)
[2020-07-07] MEDS: Docusate Calcium (SURFAK) 240 MG CAP PO SCH (09:44)
[2020-07-07] MEDS: Prenatal Vitamin 1 TAB PO SCH (09:44)
[2020-07-07] MEDS ORDERED: Furosemide 40 MG TAB PO SCH (10:15)
--- NOTE | 2020-07-09 20:54 | EKG ---
Test Reason : Blood Pressure : / mmHG Vent. Rate : 098 BPM Atrial Rate : 098 BPM P-R Int : 138 ms QRS Dur : 086 ms QT Int : 348 ms P-R-T Axes : 034 032 038 degrees QTc Int : 444 ms Normal sinus rhythm Possible Left atrial enlargement Nonspecific ST abnormality Abnormal ECG When compared with ECG of 19-APR-2020 21:58, Non-specific change in ST segment in Inferior leads T wave inversion no longer evident in Inferior leads Confirmed by Monserrat CROCKER ([id number]) on 07/09/2020 8:54:29 PM Referred By: EDIE Confirmed By:Monserrat CROCKER
== END 2020-07-07 13:37 | disposition home or self-care (01) | DRG 786 ==
LOC: L&D/OP 09:16 → L&D 11:01 → 3SW 07-03 07:17
PROVIDERS: ADMIT Emergency Medicine; ATTEND Emergency Medicine
PROC: 10D00Z1 Extraction of Products of Conception, Low, Open Approach (ICD-10-PCS; principal; 2020-07-03)
PROC: 30233S1 Transfusion of Nonautologous Globulin into Peripheral Vein, Percutaneous Approach (ICD-10-PCS; 2020-07-03)
DX: O14.94 Unspecified pre-eclampsia, complicating childbirth (principal); O41.1030 Infection of amniotic sac and membranes, unspecified, third trimester, not applicable or unspecified; O99.12 Other diseases of the blood and blood-forming organs and certain disorders involving the immune mechanism complicating childbirth; Z20.828 Contact with and (suspected) exposure to other viral communicable diseases; Z3A.37 37 weeks gestation of pregnancy; Z37.0 Single live birth; D69.6 Thrombocytopenia, unspecified; O90.89 Other complications of the puerperium, not elsewhere classified; R00.0 Tachycardia, unspecified; O99.43 Diseases of the circulatory system complicating the puerperium; I08.1 Rheumatic disorders of both mitral and tricuspid valves; O71.3 Obstetric laceration of cervix
CPT/HCPCS: 36415; 51702; 80053; 82570; 82805; 83880; 84156; 84484; 85025; 85027; 85461; 86780; 86850; 86870; 86900; 86901; 87340; 87635; 88307; 90384; 93005; 93010; 93306; 96372; 99285; J0290; J0456; J0595; J0690; J1580; J1885; J2250; J2270; J2405; J2540; J2795; J3010; J3490; J7050; S0020; U0003

== ENCOUNTER 2020-07-08 21:39 | Inpatient (IN) | payer OTHER, SELFPAY ==
[2020-07-08 22:13] LABS: #Eosinphils 0.1 thou/uL (0.0-0.7); #Lymphocytes 1.3 thou/uL (1.20-3.40); #Monocytes 0.5 thou/uL (0.11-0.59); #Neutrophils 6.3 thou/uL (1.40-6.50); %Basophils 0.3 % (0.0-1.0); %Eosinophils 1.2 % (0.0-10.0); %Lymphocytes 15.7 % (21.0-51.0); %Monocytes 6.1 % (0.0-10.0); %Neutrophils 76.6 % (42.0-75.0); Hemoglobin 10.4 g/dL (12.0-16.0); Mean Corpuscular HGB CONC 34.9 g/dL (32.0-36.0); Mean Corpuscular Hemoglobin 31.1 pg (27.0-31.0); Mean Corpuscular Volume 89.1 fL (78.0-98.0); Mean Platelet Volume 6.6 fL (7.4-10.4); Platelet Count 322 thou/uL (130-400); RBC Distribution Width 12.2 % (11.5-14.5); Red Blood Cell (RBC) Count 3.35 mill/uL (4.20-5.40); White Blood Cell (WBC) Count 8.3 thou/uL (4.8-10.8)
--- NOTE | 2020-07-08 22:22 | RAD ---
XR Chest 1 View Portable HISTORY: High blood pressure, headache. 5 days COMPARISON: None FINDINGS: The heart size normal. There are probable small pleural effusions and mild patchy opacities in the infrahilar regions.
--- NOTE | 2020-07-08 22:28 | CT ---
CT BRAIN WITHOUT CONTRAST: HISTORY: Headache, hypertension FINDINGS: No evidence of acute infarct, hemorrhage, midline shift or abnormal extra-axial fluid collections is seen. The ventricular size is appropriate and the basilar cisterns are patent. The bony calvarium is intact. The visualized paranasal sinuses and mastoid air cells are well aerated. IMPRESSION: No CT evidence of acute intracranial process.
[2020-07-08] MEDS ORDERED: Magnesium 2 GM/50 ML BAG (IN WATER) ONE (22:34)
[2020-07-08] MEDS ORDERED: Metoclopramide HCl 10 MG/2 ML VIAL ONE (22:34)
[2020-07-08 22:35] LABS: ALT (SGPT) 25 U/L (8-55); AST (SGOT) 16 U/L (5-34); Albumin 3.2 g/dL (3.5-5.0); Alkaline Phosphatase 117 U/L (40-110); Anion Gap 14 mmol/L (10-20); BUN (Urea Nitrogen) 13 mg/dL (7.0-18.7); Bilirubin, Total 0.3 mg/dL (0.2-1.2); Calc. Creatinine Clearance 0 mL/min (70-130); Calcium 8.8 mg/dL (7.8-10.44); Carbon Dioxide 23 mmol/L (22-29); Chloride 108 mmol/L (98-107); Estimated GFR-MDRD Greater than 90; Globulin 2.7 g/dL (2.4-3.5); Glucose 103 mg/dL (70-105); Potassium 3.7 mmol/L (3.5-5.1); Protein, Total 5.9 g/dL (6.0-8.3); Sodium 141 mmol/L (136-145)
[2020-07-08 23:25] LABS: Bilirubin Negative (Negative); Blood, Urine 2+ (Negative); Clarity Clear (Clear); Glucose, Urine (Dipstick) Normal (Negative); Ketone, Urine Negative (Negative); Leukocyte 75 Leu/uL (Negative); Nitrite Negative (Negative); Protein, Urine (Dipstick) Negative (Neg-Trace); RBC/HPF 0-3 HPF (0-3); Specific Gravity, Urine 1.006 (1.002-1.036); Urobilinogen Normal mg/dL (Less than 2); pH, Urine 7.5 (5.0-9.0)
[2020-07-08 23:26] LABS: Bacteria/HPF Rare-Few HPF (None Seen)
[2020-07-09] MEDS ORDERED: Labetalol HCl 100 MG/20 ML VIAL ONE (00:02)
[2020-07-09] MEDS ORDERED: Magnesium 2 GM/50 ML BAG (IN WATER) ONE (00:02)
--- NOTE | 2020-07-09 00:05 | PDOC.FPRHP ---
- History of Present Illness Chief Complaint: headache History of Present Illness: This is a 30-year-old F G2 now P1021 who delivered at 37.5 weeks due to mIOL for pre-E with arrest of dilation leading to pLTCS on 07/03/2020 @ 0241. The patient's course was complicated by Pre-E, and increased edema and SOB leading to workup including Echo, EKG, troponins. Patient's echo showed EF 55-60%, nml LA and LV sizes, mod-severe tricuspid and mitral regurgitation, trop and EKG nml, and patient was discharged on nifedipine yesterday 07/07. Patient presents to the ED today with complaints of an 8/10 headache that started in the afternoon, diffuse and non-positional, accompanied by blood pressures checked at home in the 150s-160s systolic. Denies neck stiffness, fevers or chills. Denies chest pain, vision changes, abdominal pain or urinary symptoms. Of note patient had have to have her gallbladder removed during . The patient does state that she is breast-feeding. ED Course: In the ED patient was given: diphenhydramine, labetalol, metoclopramide, 1L NS, 4gm Mag - Allergies/Adverse Reactions Allergies Allergy/AdvReac Type Severity Reaction Status Date / Time blackberry Allergy Intermediate Verified 07/09/20 01:38 - Home Medications Medication Instructions Recorded Confirmed Type Vitamin 1 tablet PO DAILY 03/25/20 07/01/20 History Sertraline HCl 50 mg PO DAILY 03/25/20 07/01/20 History Sennosides [Senna] 3 tab PO DAILY 04/19/20 07/01/20 History Docusate Calcium [Surfak] 240 mg PO BID #30 cap 07/04/20 Rx Ferrous Fumarate [Hemocyte] 324 mg PO QAM-WM #30 tab 07/04/20 Rx Simethicone [Mylicon Chewable] 80 mg PO Q4H PRN tab 07/04/20 Rx HYDROcodone/Acetaminophen [[place] 1 each PO Q6H PRN #10 tablet 07/05/20 Rx 10-325 Tablet] Polyethylene Glycol 3350 [Miralax] 17 gm PO DAILY #1 bot 07/05/20 Rx Furosemide [Lasix] 20 mg PO ONE #7 tab 07/07/20 Rx NIFEdipine [Procardia XL] 30 mg PO DAILY #30 tab 07/07/20 Rx - History PMHx: anxiety, depression, tachycardia s/p cardiac workup age 16, pre-HTN vs white coat HTN, PreEclampsia, PSHx: cholecystectomy FHx: Cancer, drug use, heart disease, ESRD, HTN, Alzheimers Social: Denies alcohol, smoking or drugs - Review of Systems General: denies: fever/chills, weight/appetite/sleep changes Eyes: denies: eye pain, vision changes ENT: denies: nasal congestion, rhinorrhea Respiratory: reports: shortness of breath. denies: cough, congestion Cardiovascular: reports: edema. denies: chest pain, palpitation Gastrointestinal: denies: nausea, vomiting, diarrhea, constipation, abdominal pain Genitourinary: denies: incontinence, dysuria Skin: denies: rashes, lesions Musculoskeletal: denies: pain, tenderness Neurological: denies: numbness, syncope Psychological: denies: anxiety, depression - Vital signs BP: 163/92 (Sitting), MAP: 115, Pulse: 101, Resp: 20 (Non-Labored), Pain: 5, O2 sat: 97 on (Room Air), Wt: 89.7kg - Physical Exam Constitutional: NAD, awake, alert and oriented, well developed HEENT: normocephalic and atraumatic, PERRLA, EOMI, MMM Neck: supple, FROM, trachea midline Heart: RRR, no murmurs/rubs/gallops, pulses present, other (1+ pitting edema bilaterally) Lungs: CTAB, no respiratory distress, good air movement Abdomen: soft, non-tender, bowel sounds present Musculoskeletal: normal structure, normal tone, ROM grossly normal Neurological: no focal deficit, CN II-XII intact, normal sensation, other (DTRs 3/4) Skin: no rash/lesions, good turgor, capillary refill <2 seconds Heme/Lymphatic: no unusual bruising or bleeding, no purpura Psychiatric: normal mood and affect, good judgment and insight, intact recent and remote memory FMR H&P: Results - Labs Result Diagrams: 07/08/20 22:03 07/08/20 22:03 Lab results: WBC 8.3 thou/uL (4.8-10.8) 07/08/20 22:03 Hgb 10.4 g/dL (12.0-16.0) L 07/08/20 22:03 Hct 29.9 % (36.0-47.0) L 07/08/20 22:03 MCV 89.1 fL (78.0-98.0) 07/08/20 22:03 Plt Count 322 thou/uL (130-400) 07/08/20 22:03 Neutrophils % 76.6 % (42.0-75.0) H 07/08/20 22:03 Sodium 141 mmol/L (136-145) 07/08/20 22:03 Potassium 3.7 mmol/L (3.5-5.1) 07/08/20 22:03 Chloride 108 mmol/L (98-107) H 07/08/20 22:03 Carbon Dioxide 23 mmol/L (22-29) 07/08/20 22:03 BUN 13 mg/dL (7.0-18.7) 07/08/20 22:03 Creatinine 0.72 mg/dL (0.6-1.1) 07/08/20 22:03 Glucose 103 mg/dL (70-105) 07/08/20 22:03 Calcium 8.8 mg/dL (7.8-10.44) 07/08/20 22:03 Total Bilirubin 0.3 mg/dL (0.2-1.2) 07/08/20 22:03 AST 16 U/L (5-34) 07/08/20 22:03 ALT 25 U/L (8-55) 07/08/20 22:03 Alkaline Phosphatase 117 U/L (40-110) H 07/08/20 22:03 Serum Total Protein 5.9 g/dL (6.0-8.3) L 07/08/20 22:03 Albumin 3.2 g/dL (3.5-5.0) L 07/08/20 22:03 Urine Ketones Negative mg/dL (Negative) 07/08/20 23:10 Urine Blood 2+ (Negative) A 07/08/20 23:10 Urine Nitrite Negative (Negative) 07/08/20 23:10 Ur Leukocyte Esterase 75 David/uL (Negative) A 07/08/20 23:10 Urine RBC 0-3 HPF (0-3) 07/08/20 23:10 Urine WBC 4-6 HPF (0-3) A 07/08/20 23:10 Ur Squamous Epith Cells 7-10 HPF (0-3) A 07/08/20 23:10 Urine Bacteria Rare-Few HPF (None Seen) 07/08/20 23:10 FMR H&P: A/P - Plan Pre-Eclampsia with severe features + SINGH, BPs in the 150s-160s systolic No lab evidence of HELLP Echo 07/06: EF 55-60%, nml LA and LV sizes, mod-severe tricuspid and mitral regurgitation - Mag for 24 hours - 4 hour mag checks - IV labetalol and hydralazine prn for Bps >160/110 - will hold home nifedipine - tylenol scheduled and norco prn for break-through pain - will likely need cardiology f/u for mod-severe tricuspid regurgitation - admit to L&D Anxiety/Depression - continue home meds Dispo: admit L&D, likely >48 hours PCP: [facility] Code status: Full FMR H&P: Upper Level - Plan Date/Time: 07/09/20 Jose Luis John, have evaluated this patient and agree with findings/plan as outlined by transportation logistics internship resident. Pertinent changes/additions are listed here. This is a 30 yo who delivered on 07/03/20 at 37.3wks by pLTCS due to failure to progress who presents to the ER with a cc of headaches and elevated BP. She states her SBP was in the 190s at home prior to coming to the ED and she had a headache that did not resolve with tylenol. Per chart review, it appears that she was had an elevated urine protein creatinine ratio but never severe range pressures to support starting magnesium. She also reports some degree of SOB that has been present since her discharge on 07/07/20. There was initially some concern for cardiomyopathy and an TTE was performed. This revealed normal cardiac muscle contractility and relaxation but did show moderat e to severe tricuspid and mitral valve regurgitation. This evening, her BP was elevated but not to severe ranges, she was tachypnic, but otherwise stable vitals. She appeared in no acute distress, lungs were clear, heart was RRR with no murmurs appreciated although body habitus may have limited exam, abdomen had appropriate TTP and pt had 1+ pitting edema in bilateral lower extremities. Pt had 3/4 reflexes in her bilateral lower extremities. Pulses present in both lower extremities. A/P Pre-eclmapsia with severe features, admit to L&D for mag for 24HR. No laboratory evidence for HELLP syndrome, treat BP with labetalol and hydralazine, hold nifedipine. Given her moderate to severe mitral and tricuspid regurgitation and SOB, pt should have serial TTE to monitor LV function. She would also likely benefit from an outpt cardiology referral to establish with them.
[2020-07-09] MEDS ORDERED: diphenhydrAMINE 50 MG/ML VIAL ONE (00:19)
[2020-07-09] MEDS ORDERED: Promethazine HCl 25 MG/ML VIAL IM PRN (01:15)
[2020-07-09] MEDS ORDERED: Ondansetron PF 4 MG/2 ML Vial IVP PRN (01:15)
[2020-07-09] MEDS ORDERED: hydrALAZINE 20 MG/ML VIAL SLOW IVP PRN (01:15)
[2020-07-09] MEDS ORDERED: Calcium Gluconate 4.6 MEQ in Sodium Chloride 0.9% 100 ML IVPB PRN (01:15)
[2020-07-09 01:34] VITALS: BMI 34.9
[2020-07-09] MEDS: Lactated Ringer's 1,000 ML IV SCH ×2 (01:34→11:34)
[2020-07-09] MEDS: Magnesium Sulfate 20 gm/500 ml 20 GM/500 ML BAG IVPB SCH ×3 (01:35→21:37)
[2020-07-09] MEDS: Labetalol HCl 100 MG/20 ML VIAL SLOW IVP PRN ×4 (01:49→21:02)
[2020-07-09] MEDS: Acetaminophen 325 MG TAB PO SCH ×2 (02:25→20:17)
--- NOTE | 2020-07-09 06:16 | PDOC.BPN ---
- Brief Progress Note 4 hour Mag Check: Patient is sleeping in bed. Upon awakening notes that her headache is improved, no change in LE edema. No SOB, CP, abdominal pain, urinary sxs. UOP is 125mL/hr. Reflexes are 3+, no clonus. Heart sounds RRR no MRG, Lungs CTAB, edema still 1+. Will recheck in 4 hours.
--- NOTE | 2020-07-09 06:57 | PDOC.FM ---
- Objective Vital Signs & Weight: Vital Signs (12 hours) Temp Pulse Resp BP BP Pulse Ox 07/09/20 01:49 88 169/95 H 07/09/20 01:13 98.2 F 88 20 164/93 H 100 Weight Weight 89.358 kg Result Diagrams: 07/08/20 22:03 07/08/20 22:03
--- NOTE | 2020-07-09 08:09 | PDOC.BPN ---
- Brief Progress Note Encounter Date: 07/09/20 Encounter Time: 08:00 0800 Mag Check S: Pt denies headache, chest pain, palpitations, SOB. Reports she has been sleeping well. No youngblood in place, patient states that she needs to void. O: Vitals signs reviewed, BP 169/95, R 20, 100% o nRA, T 98.2 Pex: Cardiac: RRR, no murmur Lungs: BCTA Neuro: PERRLA, EOMI. CN 2-12 grossly intact. Strength 5/5. Patellar reflex 2+ bilat, no clonus Ext: 1+ pitting edema BLE up to lower calves A/P: Post PreE with severe features -Continue Mag until midnight tonight, q4h mag checks with strict I/O -Continue NPO with LR @ 120 -voided 675 ml after we spoke, adequate voided urine LE Edema -Edema is much improved since last admission, patient has not used furosemide at home as she states her daily weights dropped 3-4 lbs each day -Pt had cardiac work up last admission for mildly elevated BNP at 125 and severe LE swelling bilat up to abdomen. Work up included EKG, trop, and Echo which were normal. Likely chronic HTN -pt likely has chronic HTN with superimposed pre-E, continue procardia that was started on DC -likely dc tomorrow AM, with close follow up after discharge
[2020-07-09] MEDS ORDERED: Non-Formulary Item 1 EACH (Sertraline Hcl [Sertraline Hcl] 50 MG Tablet) PO SCH (09:00)
[2020-07-09] MEDS: NIFEdipine XL 30 MG TAB PO SCH (10:35)
--- NOTE | 2020-07-09 12:41 | PDOC.BPN ---
- Brief Progress Note 1200 Mag Check S: Pt denies headache, chest pain, palpitations, SOB. Resting comfortably. [place] now in place. O: BP ranging from 151-165/82-89; two severe range BPs of 161 & 165/80s UO - > 1200 over last 4 hours Cardiac: RRR, no murmur Lungs: CTAB Neuro: PERRLA, EOMI. CN 2-12 grossly intact. Strength 5/5. Patellar reflex 2+ bilat, no clonus Ext: 1+ pitting edema BLE up to lower calves A/P: Post PreE with severe features -24 hrs of mag, will end at midnight tonight, will continue q4h mag checks with strict I/O -Continue NPO with LR @ 120 -two severe range BPs: will give labetalol LE Edema -improved since last admission, was not taking lasix at home -Pt had cardiac work up last admission for mildly elevated BNP at 125 and severe LE swelling bilat up to abdomen. Work up included EKG, trop, and Echo which were normal. Likely chronic HTN -pt likely has chronic HTN with superimposed pre-E, continue procardia that was started on DC Dispo: likely dc tomorrow AM, with close follow up after discharge
[2020-07-09] MEDS ORDERED: Labetalol HCl 100 MG/20 ML VIAL SLOW IVP SCH (14:15)
[2020-07-09] MEDS: Labetalol 100 MG TAB PO SCH ×2 (14:30→21:36)
[2020-07-09] MEDS ORDERED: Labetalol 100 MG TAB PO SCH (14:35)
--- NOTE | 2020-07-09 16:10 | PDOC.BPN ---
- Brief Progress Note Denies SINGH, chest pain, SOB, vision changes. VS: Urine output: 300-700 per hr Cardiac: RRR, no murmur Lungs: CTA Neuro: Grossly intact. Patellar reflex 2+ bilat, no clonus Ext: 1+ pitting edema BLE up to lower calves A/P: PreE with severe features - 24hrs of mag, will end at midnight tonight - Clear liquids - Urine output adequate LE Edema, improving - Was not taking lasix at home - Pt had cardiac work up last admission for mildly elevated BNP at 125 and severe LE swelling bilat up to abdomen. Work up included EKG, trop, and Echo which were normal. Likely chronic HTN -pt likely has chronic HTN with superimposed pre-E, continue procardia that was started on DC
[2020-07-09] MEDS: HYDROcodone/Acetaminophen 5/325 mg Tablet PO PRN (16:12)
--- NOTE | 2020-07-09 23:05 | PDOC.BPN ---
- Brief Progress Note Denies SINGH, chest pain, SOB, vision changes. VS: Urine output: 500-600mL per hr Cardiac: RRR, no murmur Lungs: CTA Neuro: Grossly intact. Patellar reflex 2-3+ bilat, no clonus Ext: 1+ pitting edema BLE up to lower calves A/P: PreE with severe features - 24hrs of mag, will end at 0200 tonight - Clear liquids - Urine output adequate LE Edema, improving - Was not taking lasix at home - Pt had cardiac work up last admission for mildly elevated BNP at 125 and severe LE swelling bilat up to abdomen. Work up included EKG, trop, and Echo which were normal. Likely chronic HTN -pt likely has chronic HTN with superimposed pre-E, continue procardia that was started on DC
--- NOTE | 2020-07-10 00:52 | PDOC.BPN ---
- Brief Progress Note Denies SINGH, chest pain, SOB, vision changes. VS: Urine output: 150-450mL per hr Cardiac: RRR, no murmur Lungs: CTA Neuro: Grossly intact. Patellar reflex 2+ bilat, no clonus Ext: 1+ pitting edema BLE up to lower calves A/P: PreE with severe features - 24hrs of mag, will end at 0200 tonight - Clear liquids - Urine output adequate LE Edema, improving - Was not taking lasix at home - Pt had cardiac work up last admission for mildly elevated BNP at 125 and severe LE swelling bilat up to abdomen. Work up included EKG, trop, and Echo which were normal. Likely chronic HTN -pt likely has chronic HTN with superimposed pre-E, continue procardia that was started on DC
[2020-07-10] MEDS: Acetaminophen 325 MG TAB PO SCH ×4 (03:05→23:33)
--- NOTE | 2020-07-10 06:41 | PDOC.FM ---
- Subjective Subjective: Overnight received labetalol x1 for one severe range BP. Blood pressure has been elevated but not in severe range since that time. She denies headache, SOB, RUQ pain this AM. Reports her edema is improving - still with hand edema but leg swelling has improved and plantar flexion of toes is improving as well. Still with pedal edema. Erythema of abdomen she feels is returning to normal as well. - Objective Vital Signs & Weight: Vital Signs (12 hours) Pulse BP 07/09/20 21:36 96 168/82 H 07/09/20 21:02 96 168/82 H 07/09/20 20:17 88 149/71 H Weight Weight 89.358 kg Result Diagrams: 07/08/20 22:03 07/08/20 22:03 Phys Exam - Physical Examination Constitutional: NAD HEENT: moist MMs, sclera anicteric Neck: supple Respiratory: no wheezing, no rales, no rhonchi, clear to auscultation bilateral Cardiovascular: no significant murmur tachycardia Gastrointestinal: soft, non-tender, positive bowel sounds Musculoskeletal: pulses present 1+ pedal edema just proximal to ankles Neurological: non-focal, moves all 4 limbs Psychiatric: normal affect, A&O x 3 Skin: no rash Deviation from normal: abrasion to LLQ Dx/Plan - Plan Plan: Pre-Eclampsia with severe features + SINGH, BPs in the 150s-160s systolic on admission No lab evidence of HELLP Echo 07/06: EF 55-60%, nml LA and LV sizes, mod-severe tricuspid and mitral regurgitation - Received 24 h therapy with Mg, discontinued 0200 this AM - Persistent edema - will give 40mg IV lasix x 1 this AM - Adequate UOP, continue strict I/O - IV labetalol and hydralazine prn for Bps >160/110 - will continue home nifedipine - tylenol scheduled and norco prn for break-through pain - will likely need cardiology f/u for mod-severe tricuspid regurgitation Anxiety/Depression - continue home meds Dispo: may transfer to floor today PCP: [facility] Code status: Full Addendum - Attending - Attending Attestation Date/Time: 07/10/20 1058 I personally evaluated the patient and discussed the management with resident team I agree with the History, Examination, Assessment and Plan documented above with any addition or exceptions noted below. HD#2 Patient is now PPD#7 from LTCS 2/2 arrest of labor. Wound is healing well. No evidence of infection. BP has been mild range. Will continue to closely monitor. Will add evening dose of CCB if needed based on BP today. Asymptomatic this morning. Edema much improved. UOP 9L total. Will continue monitor. Pitting edema still present to lower body. Continue lasix. Monitor today and likely d/c in AM. Zbigniew
[2020-07-10] MEDS ORDERED: Furosemide 40 MG/4 ML VIAL SLOW IVP SCH (07:45)
[2020-07-10] MEDS: NIFEdipine XL 30 MG TAB PO SCH (09:39)
[2020-07-10] MEDS: Labetalol 100 MG TAB PO SCH (09:50)
[2020-07-10] MEDS: Lactated Ringer's 1,000 ML IV SCH (12:13)
[2020-07-10] MEDS ORDERED: Furosemide 20 MG/2 ML VIAL SLOW IVP SCH (15:00)
[2020-07-10] MEDS: HYDROcodone/Acetaminophen 5/325 mg Tablet PO PRN (15:15)
[2020-07-11] MEDS: Acetaminophen 325 MG TAB PO SCH ×3 (04:03→14:03)
--- NOTE | 2020-07-11 07:03 | PDOC.FM ---
- Subjective Subjective: No acute overnight events. Slept well. No headache, chest pain, SOB, palpitations. Swelling is somewhat improved. c/o mild pain in lower abd she attributes to her , tolerable and able to sleep through without pain medication. - Objective Vital Signs & Weight: Vital Signs (12 hours) Temp Pulse Resp BP BP Pulse Ox 07/11/20 04:34 98.8 F 84 18 143/69 H 07/11/20 00:08 98.5 F 86 18 148/75 H 07/10/20 20:56 99.1 F 92 18 137/71 98 Weight Weight 89.358 kg I&O: 07/10/20 07/11/20 07/12/20 06:59 06:59 06:59 Intake Total 2396 Output Total 5175 Balance -2779 Result Diagrams: 07/08/20 22:03 07/11/20 09:53 Phys Exam - Physical Examination Constitutional: NAD HEENT: moist MMs Respiratory: no wheezing, no rales, clear to auscultation bilateral Cardiovascular: RRR, no significant murmur Gastrointestinal: soft, non-tender, no distention, positive bowel sounds Musculoskeletal: pulses present, edema present (1+ pitting edema bilat to mid- zafar) Neurological: moves all 4 limbs Psychiatric: normal affect, A&O x 3 Skin: no rash Dx/Plan - Plan Plan: Pre-Eclampsia with severe features Headache, elevated BP on admission. No lab evidence of HELLP Echo 07/06: EF 55-60%, nml LA and LV sizes, mod-severe tricuspid and mitral regurgitation - s/p 24h Mg, now off for >24h - Persistent edema s/p IV lasix yesterday - Adequate UOP - diuresed 2.7L with lasix yesterday - continue strict I/O - IV labetalol and hydralazine prn for Bps >160/110; has not had any severe range pressures requiring PRN since 07/09 - consider increasing nifedipine XL to 30 mg BID for tighter control of BP - 130s-140s systolic over past 24h off Mg - tylenol scheduled and norco prn for break-through pain - will likely need cardiology f/u for mod-severe tricuspid regurgitation - will also need PRN lasix outpatient Anxiety/Depression - continue home meds Addendum - Attending - Attending Attestation Date/Time: 07/11/20 1056 I personally evaluated the patient and discussed the management with resident team I agree with the History, Examination, Assessment and Plan documented above with any addition or exceptions noted below. Stable. No acute changes. Continues to improve. Remains asymptomatic. BP normal to mild range. Improved with CCB. Check BMP and mag. Give IV dose of Lasix this AM. Ok to d/c to home. Replace electrolytes if needed. Follow up with PCP before weekend. Monitor BP at home. Zbigniew
[2020-07-11] MEDS ORDERED: NIFEdipine XL 30 MG TAB PO SCH ×2 (09:00)
[2020-07-11] MEDS ORDERED: Furosemide 20 MG/2 ML VIAL SLOW IVP SCH (09:30)
[2020-07-11 10:27] LABS: Anion Gap 15 mmol/L (10-20); BUN (Urea Nitrogen) 15 mg/dL (7.0-18.7); Calc. Creatinine Clearance 154 mL/min (70-130); Calcium 8.5 mg/dL (7.8-10.44); Carbon Dioxide 23 mmol/L (22-29); Chloride 107 mmol/L (98-107); Estimated GFR-MDRD Greater than 90; Glucose 83 mg/dL (70-105); Magnesium 2.3 mg/dL (1.6-2.6); Potassium 4.1 mmol/L (3.5-5.1); Sodium 141 mmol/L (136-145)
[2020-07-11 12:07] VITALS: BP 145/78; TEMP 98.1
--- NOTE | 2020-07-12 02:25 | DIS ---
DATE OF ADMISSION: 07/09/2020 DATE OF DISCHARGE: 07/11/2020 RESIDENT: Siobhan Pineda DO ADMITTING ATTENDING: Melinda Guerrero MD DISCHARGE ATTENDING: Cassie Mccarty MD CONSULT: None. PROCEDURE: None. PRIMARY DIAGNOSIS: Preeclampsia with severe features. SECONDARY DIAGNOSIS: Anxiety and depression. HISTORY OF PRESENT ILLNESS/HOSPITAL COURSE: This is a 30-year-old female, G2, P1-0-1-1, who delivered at 37 and 5 weeks due to medical induction of labor for preeclampsia with arrest of dilation leading to primary low transverse on 07/03/2020 at 2:41. Her peripartum course was complicated by preeclampsia and increased edema and shortness of breath, which led to an extensive workup, including an echocardiogram, EKG, and troponin. During her past admission, she was discharged on 07/07 with a new prescription for nifedipine and p.r.n. Lasix to be taken at home. She returned to our facility on 07/09 with an 8/10 headache that began in the afternoon and was accompanied by blood pressures with systolic 150 to 160s. She denied any other symptoms in the outpatient setting between her discharge and readmission. During her admission for labor, she was not given magnesium for her preeclampsia. Upon this admission, she was given a one time dose of labetalol, continued on her home prescription of 30 mg nifedipine daily, and she was started on 24 hours of magnesium after a 4 g loading dose. Her blood pressures responded well to this and she did not require any additional p.r.n. blood pressure medications for severe range pressures after her first day of admission. She was continued on her home nifedipine throughout her admission. She did not have any complications of magnesium therapy, including no magnesium toxicity. She was also given multiple doses of IV Lasix for her edema. Overall, she diuresed nearly 6 L during this admission and her weight decreased from 89 kg to 81 kg reflective of her diuresis. Given that her blood pressures have stabilized, her electrolytes are within normal limits after Lasix therapy, and patient has good followup and to continue her blood pressure medicine and blood pressure monitoring at home, she will be discharged in stable condition to home with instructions to follow up tomorrow at [facility] as previously scheduled. DISPOSITION: Stable. DISCHARGE INSTRUCTIONS: 1. Location: Home. 2. Diet: Regular diet. 3. Activity: As tolerated. 4. Followup: Follow up with [facility] tomorrow as planned. Job ID: [id number] MTDD
== END 2020-07-11 14:42 | disposition home or self-care (01) | DRG 776 ==
LOC: ERS 21:39 → L&D 07-09 00:18 → 3SW 07-10 12:25
PROVIDERS: ADMIT Family Medicine; ATTEND Family Medicine
DX: O11.5 Pre-existing hypertension with pre-eclampsia, complicating the puerperium (principal); F41.9 Anxiety disorder, unspecified; F32.9 Major depressive disorder, single episode, unspecified; O99.345 Other mental disorders complicating the puerperium; F53.0 Postpartum depression; O10.93 Unspecified pre-existing hypertension complicating the puerperium; Z79.899 Other long term (current) drug therapy; Z91.018 Allergy to other foods; Z90.49 Acquired absence of other specified parts of digestive tract
CPT/HCPCS: 36415; 70450; 71045; 80048; 80053; 81003; 81015; 82570; 82977; 83735; 84156; 84484; 85025; 93005; 96365; 96366; 96375; 96376; 99285; J0360; J1200; J1940; J2550; J2765; J3475

== ENCOUNTER 2020-09-20 11:05 | Emergency (ER) | payer OTHER ==
[2020-09-20 11:44] LABS: #Eosinphils 0.1 thou/uL (0.0-0.7); #Lymphocytes 1.4 thou/uL (1.20-3.40); #Monocytes 0.4 thou/uL (0.11-0.59); #Neutrophils 3.9 thou/uL (1.40-6.50); %Basophils 0.4 % (0.0-1.0); %Eosinophils 1.7 % (0.0-10.0); %Lymphocytes 24.1 % (21.0-51.0); %Monocytes 6.9 % (0.0-10.0); %Neutrophils 66.9 % (42.0-75.0); Mean Corpuscular HGB CONC 34.7 g/dL (32.0-36.0); Mean Corpuscular Hemoglobin 29.7 pg (27.0-31.0); Mean Corpuscular Volume 85.5 fL (78.0-98.0); Mean Platelet Volume 7.4 fL (7.4-10.4); Platelet Count 192 thou/uL (130-400); RBC Distribution Width 12.1 % (11.5-14.5); Red Blood Cell (RBC) Count 4.38 mill/uL (4.20-5.40); White Blood Cell (WBC) Count 5.8 thou/uL (4.8-10.8)
[2020-09-20 12:03] LABS: BHCG - Serum Negative (NEGATIVE); Pregs Control Background? CLEAR/WHITE (CLR/WHITE); Pregs Control Bar Appear? YES (CONTROL BAR)
[2020-09-20 12:10] LABS: ALT (SGPT) 58 U/L (8-55); AST (SGOT) 29 U/L (5-34); Albumin 4.8 g/dL (3.5-5.0); Alkaline Phosphatase 98 U/L (40-110); Anion Gap 15 mmol/L (10-20); BUN (Urea Nitrogen) 17 mg/dL (7.0-18.7); Bilirubin, Total 1.1 mg/dL (0.2-1.2); Calc. Creatinine Clearance 0 mL/min (70-130); Calcium 9.5 mg/dL (7.8-10.44); Carbon Dioxide 26 mmol/L (22-29); Chloride 104 mmol/L (98-107); Globulin 2.8 g/dL (2.4-3.5); Glucose 119 mg/dL (70-105); Potassium 4.1 mmol/L (3.5-5.1); Protein, Total 7.6 g/dL (6.0-8.3); Sodium 141 mmol/L (136-145)
[2020-09-20] MEDS ORDERED: Iopamidol-370 76% 500 ML 1 ML ONE (14:18)
--- NOTE | 2020-09-20 14:53 | CT ---
CTA CHEST WITH CONTRAST: 09/20/20 Axial tomograms obtained with multiplanar reconstruction and 3D postprocessing. INDICATIONS: Syncope. FINDINGS: Pulmonary arteries show normal opacification. There is no evidence of pulmonary embolus. Thoracic aor ta appears normal. No dissection. Mediastinum unremarkable. No adenopathy. Lung cho are clear. No infiltrate. There is a cystic area in the right lower lobe measuring up to 5 cm. Images through upper abdomen are unremarkable. Osseous structures unremarkable. IMPRESSION: 1. No evidence of pulmonary embolus. 2. No acute lung process. 3. Chronic cystic area in the right lower lobe. POS: OFF
--- NOTE | 2020-10-07 21:52 | EKG ---
Test Reason : Blood Pressure : / mmHG Vent. Rate : 109 BPM Atrial Rate : 109 BPM P-R Int : 146 ms QRS Dur : 086 ms QT Int : 332 ms P-R-T Axes : 063 066 -29 degrees QTc Int : 447 ms Sinus tachycardia Possible Left atrial enlargement T wave abnormality, consider inferior ischemia Confirmed by JESSE AKBAR DO ([id number]), book or script editor CAITLYN ALFONSO ([id number]) on 10/07/2020 9:51:59 PM Referred By: Confirmed By:JESSE AKBAR DO
== END 2020-09-20 15:34 | disposition home or self-care (01) ==
LOC: ERS 11:05
DX: R55 Syncope and collapse (principal); J98.4 Other disorders of lung; I10 Essential (primary) hypertension; Z79.899 Other long term (current) drug therapy
CPT/HCPCS: 36415; 71275; 80053; 84443; 84484; 84703; 85025; 85379; 93005; Q9967